=== PATIENT | female | born 1945 | race Caucasian/White ===

== ENCOUNTER 2024-11-16 12:21 | Inpatient (IN) | payer OTHER, BC ==
[2024-11-16 12:58] LABS: Absolute Basophils 0.1 K/uL (0-0.5); Absolute Eosinophils 0.2 K/uL (0-0.5); Absolute Lymphocytes (CBC) 2.1 K/uL (0.7-4.9); Absolute Monocytes 0.9 K/uL (0.1-1.3); Absolute Neutrophil 9.6 K/uL (1.8-8.0); Basophils % 0.6 % (0-1.3); Eosinophils % 1.8 % (0-4.4); Hematocrit 39.8 % (36.0-45.0); Hemoglobin 12.6 g/dL (12.0-15.0); Lymphocytes % 16.4 % (15.3-44.8); MCH 29.6 pg (27.0-35.0); MCHC 31.8 g/dL (32.0-36.0); MCV 93.1 fL (80-100); MPV 7.4 fL (7.6-11.3); Monocytes % 6.8 % (3.3-12.3); Neutrophils % 74.4 % (41.7-73.7); Platelets 276 thou/uL (152-406); RBC Red Blood Cell Count 4.27 M/uL (3.86-4.86); Red Cell Distribution Width 15.7 % (12.1-15.2)
[2024-11-16 13:06] LABS: PT Prothrombin Time 11.1 SECONDS (9.4-12.5); PTT, Activated Partial Thromb 28.9 SECONDS (24.3-36.9); Protime INR 0.99
[2024-11-16 13:18] LABS: Albumin 2.9 g/dL (3.4-5.0); Albumin/Globulin Ratio 0.7 (1.1-1.8); Alkaline Phosphatase 113 U/L (45-117); Anion Gap 8.2 mEq/L (5.0-15.0); BUN Blood Urea Nitrogen 35 mg/dL (7-18); Bicarbonate 31 mEq/L (21-32); Bilirubin Total 0.6 mg/dL (0.2-1.0); Globulin 4.3 g/dL (2.3-3.5); Glomerular Filtration Rate 30 ml/min (=/>90); Glucose Level 238 mg/dL (74-106); Magnesium 1.8 mg/dL (1.6-2.4); Potassium 4.2 mEq/L (3.5-5.1); Protein, Total 7.2 g/dL (6.4-8.2); Sodium Level 137 mEq/L (136-145)
[2024-11-16 13:31] LABS: ALT/SGPT < 14 U/L (13-56); AST/SGOT < 10 U/L (15-37)
--- NOTE | 2024-11-16 14:21 | RAD REPORT ---
EXAM: CT Head Brain Wo Cont HISTORY: syncope vs seizure COMPARISON: 09/06/2023 TECHNIQUE: Multiple contiguous axial images were obtained for a CT of the brain without contrast. Sag ittal and coronal reformats were performed. One or more of the following dose reduction techniques were used: Automated exposure control, adjus tment of the mA and kV according to patient size, and iterative reconstruction. Unless otherwise specified, incidental findings do not require dedicated imaging follow-up. FINDINGS: No evidence of hydrocephalus, intracranial hemorrhage, or extra-axial fluid collection. Moderate brain atrophy with moderate periventricular and deep white matter chronic microvascular isc hemic changes present. The calvarium is intact. The visualized paranasal sinuses and mastoid air cells are essentially clear . IMPRESSION: No evidence of acute intracranial abnormality. Chronic findings as above.
--- NOTE | 2024-11-16 15:18 | RAD REPORT ---
EXAMINATION: ONE VIEW CHEST XR CLINICAL INDICATION: Female, 79 years old.,DYSPNEA TECHNIQUE: Frontal chest projection is submitted. Examination is limited by patient positioning and t echnique. COMPARISON: 08/20/2023 FINDINGS: The lungs are well inflated. Streaky irregular opacity is mildly progressive since the prior exam. N o pneumothorax or sizable effusion. The heart is normal in size. Mediastinal contours are unremarkable. IMPRESSION: Progressive infrahilar opacities, may suggest reactive airway changes or viral infection. No focal co nsolidation.
--- NOTE | 2024-11-16 15:30 | EDPHYS ---
Physician Documentation [facility] Name: Renee Meraz Age: 79 yrs Sex: Female : 1945 Arrival Date: 11/16/2024 Time: 12:21 Bed 5 Private MD: ED Physician Julio Cesar Bond HPI: 11/16 12:49 This 79 yrs old Female presents to ER via EMS with complaints of Dizziness. rn 12:49 The patient presents with feeling faint, generalized weakness, lightheadedness. Onset: rn The symptoms/episode began/occurred this morning. Modifying factors: The symptoms are alleviated by lying down, the symptoms are aggravated by changing position. Severity of symptoms: At their worst the symptoms were moderate in the emergency department the symptoms have improved. The patient has not experienced similar symptoms in the past. Patient reports had to leave long term due to fire alarm, will walk outside with walker, spotted by kids who saw her sitting in her walker seat with tremors and possibly shaking her legs. Patient does not have history of seizures. Patient reports that she never lost consciousness and was aware of entire event. She reports she was feeling dizzy and lightheaded but denies syncope. Denies focal weakness or numbness. No vision problems. No chest pain. No speech problems. EMS does report hypoxemia and patient denies previous lung problems or need for oxygen. Does report previous smoking history. No chest pain.. Historical: - Allergies: 12:31 shrimp flavoring; aa5 - PMHx: 12:31 Hypertensive disorder; Myocardial infarction; Kidney Disease; Diabetes mellitus; aa5 - Family history:: not pertinent. - Hospitalizations: : No recent hospitalization is reported. ROS: 12:49 Constitutional: Negative for fever, chills, and weight loss, Eyes: Negative for injury, rn pain, redness, and discharge, Neck: Negative for injury, pain, and swelling, Cardiovascular: Negative for chest pain, palpitations, and edema, Respiratory: Mild shortness of breath Abdomen/GI: Negative for abdominal pain, nausea, vomiting, diarrhea, and constipation, Back: Negative for injury and pain, MS/Extremity: Negative for injury and deformity, Skin: Negative for injury, rash, and discoloration, Neuro: Positive for dizziness and generalized weakness. Negative for weakness that is focal Exam: 12:49 Constitutional: This is a well developed, well nourished patient who is awake, alert, rn and in no acute distress. On a nasal cannula. Head/Face: Normocephalic, atraumatic. ENT: Dry mucous membranes, no stridor Cardiovascular: Regular rate and rhythm. No pulse deficits. Respiratory: Mild tachypnea. No retractions Abdomen/GI: Soft, nontender MS/ Extremity: No edema. No cyanosis. Neuro: Awake and alert, GCS 15, oriented to person, place, and situation. Cranial nerves II-XII grossly intact. Motor strength 4/5 in all extremities. Sensory grossly intact. Cerebellar exam normal. 15:50 ECG was reviewed by the Attending Physician. rn Vital Signs: 12:25 BP 154 / 69; Pulse 67; Resp 22 S; Temp 98.4(O); Pulse Ox 94% on R/A; aa5 12:37 Pulse Ox 100% on 2 lpm NC; aa5 14:00 BP 132 / 81; Pulse 70; Resp 16 S; Pulse Ox 99% on 2 lpm NC; aa5 15:00 Resp 26 S; Pulse Ox 90% on R/A; aa5 15:01 BP 146 / 92; Pulse 72; Resp 16 S; Pulse Ox 97% on 2 lpm NC; aa5 16:00 BP 154 / 69; Pulse 67; Resp 20 S; Temp 98(TE); Pulse Ox 99% on 2 lpm NC; aa5 17:00 BP 128 / 65; Pulse 68; Resp 19 S; Pulse Ox 99% on 2 lpm NC; aa5 15:00 see nursing notes aa5 MDM: 12:25 Medical Screening Exam initiated rn 15:27 Differential diagnosis: idiopathic dizziness, near-syncope, Reactive airway disease, rn COPD, pneumonia, viral pneumonia, flu, COVID, UTI. Data reviewed: vital signs, nurses notes, lab test result(s), EKG, radiologic studies, plain films, and as a result, I will admit patient. Consideration of Admission/Observation Patient was admitted/placed on observation. Escalation of care including admission/observation considered. Care significantly affected by the following chronic conditions: Hypertension, Chronic Obstructive Pulmonary Disease. Counseling: I had a detailed discussion with the patient and/or guardian regarding the historical points, exam findings, and any diagnostic results supporting the discharge/admit diagnosis, lab results, radiology results, the need for further work-up and treatment in the hospital. ED course: X-ray shows bilateral pulmonary inflammation, possibly viral. Normal lactic acid. Elevated WBC. Will treat empirically with antibiotics and admit to hospitalist service for reactive airway disease with possible pneumonia. Viral studies sent to given bilateral pattern. Patient ambulated to bathroom with hypoxemia and dyspnea upon returning with tachypnea and oxygen saturation of 90%. Patient does not normally use oxygen. Does have smoking history in the past but no formal diagnosis of COPD or asthma.. 11/16 12:26 Order name: CBC with Diff; Complete Time: 14:43 rn 11/16 12:26 Order name: Magnesium; Complete Time: 14:43 rn 11/16 12:26 Order name: Protime (+inr); Complete Time: 14:43 rn 11/16 12:26 Order name: Ptt, Activated; Complete Time: 14:43 rn 11/16 12:26 Order name: Troponin High Sensitivity; Complete Time: 14:43 rn 11/16 12:26 Order name: Urinalysis w/ reflexes rn 11/16 12:26 Order name: Blood Culture Adult (2) 11/16 12:26 Order name: CMP; Complete Time: 14:43 rn 11/16 12:26 Order name: Lactate w/ 2H reflex if indic.; Complete Time: 14:43 rn 11/16 15:22 Order name: Flu 11/16 15:22 Order name: SARS-COV-2 Antigen Rapid 11/16 15:40 Order name: Urine Culture EDWV 11/16 16:39 Order name: T4 Free EDMS 11/16 16:39 Order name: Thyroid Stimulating Hormone EDMS 11/16 16:39 Order name: Basic Metabolic Panel EDMS 11/16 16:39 Order name: Basic Metabolic Panel EDMS 11/16 16:39 Order name: Basic Metabolic Panel EDMS 11/16 16:39 Order name: Basic Metabolic Panel EDMS 11/16 16:40 Order name: Basic Metabolic Panel EDMS 11/16 16:40 Order name: Basic Metabolic Panel EDMS 11/16 16:40 Order name: CBC with Automated Diff EDMS 11/16 16:40 Order name: CBC with Automated Diff EDMS 11/16 16:40 Order name: CBC with Automated Diff EDMS 11/16 16:40 Order name: CBC with Automated Diff EDMS 11/16 16:40 Order name: CBC with Automated Diff EDMS 11/16 16:40 Order name: CBC with Automated Diff EDMS 11/16 16:40 Order name: Hemoglobin A1c EDMS 11/16 16:40 Order name: Hemoglobin A1c EDMS 11/16 16:40 Order name: Magnesium EDMS 11/16 16:40 Order name: Magnesium EDMS 11/16 16:40 Order name: Magnesium EDMS 11/16 16:40 Order name: Magnesium EDMS 11/16 16:40 Order name: Magnesium EDMS 11/16 16:40 Order name: Magnesium EDMS 11/16 16:40 Order name: Phosphorus EDMS 11/16 16:40 Order name: Phosphorus EDMS 11/16 16:40 Order name: Phosphorus EDMS 11/16 16:40 Order name: Phosphorus EDMS 11/16 16:40 Order name: Phosphorus EDMS 11/16 16:40 Order name: Phosphorus EDMS 11/16 16:40 Order name: Troponin High Sensitivity EDMS 11/16 16:40 Order name: Troponin High Sensitivity EDMS 11/16 16:40 Order name: Troponin High Sensitivity EDMS 11/16 12:26 Order name: CT Head Brain wo Cont; Complete Time: 14:43 rn /16 12:26 Order name: Chest Single View XRAY; Complete Time: 15:21 rn /16 12:26 Order name: EKG; Complete Time: 12:27 rn /16 12:26 Order name: Cardiac monitoring; Complete Time: 12:31 rn /16 12:26 Order name: EKG - Nurse/Tech; Complete Time: 12:59 rn /16 12:26 Order name: IV Saline Lock; Complete Time: 12:31 rn /16 12:26 Order name: Labs collected and sent; Complete Time: 13:02 rn /16 12:26 Order name: O2 Per Protocol; Complete Time: 12:31 rn /16 12:26 Order name: O2 Sat Monitoring; Complete Time: 12:31 rn /16 12:26 Order name: Accucheck; Complete Time: 12:38 rn 12/16 12:26 Order name: IV Saline Lock - Large Bore; Complete Time: 12:38 rn 12/16 12:26 Order name: Vital Signs; Complete Time: 12:38 rn EC:50 Rate is 71 beats/min. Rhythm is regular. QRS [place] is Normal. [place] interval is normal. QRS rn interval is normal. QT interval is normal. No Q waves. T waves are Normal. No ST changes noted. Clinical impression: NSR w/ Non-specific ST/T Changes. Interpreted by me. Reviewed by me. Administered Medications: 16:00 Drug: Rocephin IV 1 grams IV at calculated rate once; Given slow IV push per pharmacy aa5 instructions Route: IV; Rate: calculated rate; Site: right hand; 16:04 Follow up: IV Status: Completed infusion aa5 16:05 Drug: Zithromax IVPB 500 mg IVPB once over 1 hrs; mix in 250 mL NS Route: IVPB; Infused aa5 Over: 1 hrs; Site: right hand; 16:20 Follow up: Response: No adverse reaction aa5 17:05 Follow up: IV Status: Completed infusion; IV Intake: 250ml aa5 16:05 Drug: Levalbuterol Inhalation 1.25 mg Inhalation once Route: Inhalation; aa5 Disposition Summary: 11/16/24 15:30 Hospitalization Ordered Notes: Hospitalization Status: Inpatient Admission rn Provider: Piper Almendarez [facility] Condition: Stable rn Problem: new rn Symptoms: are unchanged rn Bed/Room Type: Standard rn Room Assignment: 213(11/16/24 16:46) bd Diagnosis - Pneumonia, unspecified organism rn - Hypoxemia rn - Dyspnea, unspecified rn Forms: - Medication Reconciliation Form rn - SBAR form rn - Leadership Thank You Letter rn Signatures: Dispatcher [employer] Manasa Workman Roman, MD MD rn Calderon, Audri, RN RN aa5 Corrections: (The following items were deleted from the chart) 16:46 15:30 rn bd
--- NOTE | 2024-11-16 15:30 | ER ---
Nurse's Notes [facility] Name: Renee Meraz Age: 79 yrs Sex: Female : 1945 Arrival Date: 11/16/2024 Time: 12:21 Bed 5 Private MD: Diagnosis: Pneumonia, unspecified organism;Hypoxemia;Dyspnea, unspecified Presentation: 11/16 12:25 Chief complaint: EMS states: Pt lives at [facility] and was outside because of a fire aa5 alarm and was sitting on walker chair when kid bystanders noticed pt was not responding and "legs were twitching", pt reports she remembers everything and reports she was feeling dizzy and not well at the time. Pt reports dizziness has improved and is A\\T\\O x 4. EMS reports O2 sat was 90% upon arrival. 12:25 Coronavirus screen: At this time, the client does not indicate any symptoms associated aa5 with coronavirus-19. Ebola Screen: Patient denies travel to an Ebola-affected area in the 21 days before illness onset. Initial Sepsis Screen: Does the patient meet any 2 criteria? No. Patient's initial sepsis screen is negative. Does the patient have a suspected source of infection? No. Patient's initial sepsis screen is negative. Risk Assessment: Do you want to hurt yourself or someone else? Patient reports no desire to harm self or others. Onset of symptoms was November 16, 2024. 12:25 Acuity: PAMELA 2 aa5 12:25 Method Of Arrival: EMS: [facility] aa5 12:25 Care prior to arrival: IV initiated. 20 GA, in the right antecubital area, Glucose aa5 check: 293 Oxygen administered. via nasal cannula. Historical: - Allergies: 12:31 shrimp flavoring; aa5 - PMHx: 12:31 Hypertensive disorder; Myocardial infarction; Kidney Disease; Diabetes mellitus; aa5 - Family history:: not pertinent. - Hospitalizations: : No recent hospitalization is reported. Screenin:30 [facility] ED Fall Risk Assessment (Adult) History of falling in the last 3 months, aa5 including since admission No falls in past 3 months (0 pts) Confusion or Disorientation No (0 pts) Intoxicated or Sedated No (0 pts) Impaired Gait Yes (1 pt) Mobility Assist Device Used Yes (1 pt) Altered Elimination Yes (1 pt) Score/Fall Risk Level 3 or more points = High Risk Oriented to surroundings, Maintained a safe environment, Educated pt \\T\\ family on fall prevention, incl call for assistance when getting out of bed. Abuse screen: Denies threats or abuse. Nutritional screening: No deficits noted. Tuberculosis screening: No symptoms or risk factors identified. Assessment: 12:25 General: Appears comfortable, Behavior is calm, cooperative. Pain: Denies pain. Neuro: aa5 Level of Consciousness is awake, alert, obeys commands, Oriented to person, place, time, situation, Terminal Block Assembler are equal bilaterally Moves all extremities. Speech is normal, Facial symmetry appears normal, currently denies dizziness . Cardiovascular: Heart tones S1 S2 present Rhythm is regular. Respiratory: Airway is patent Respiratory effort is even, unlabored, Respiratory pattern is regular, symmetrical, Breath sounds are clear bilaterally. GI: Abdomen is round non-distended, Bowel sounds present X 4 quads. Abd is soft and non tender X 4 quads. Patient currently denies diarrhea, nausea, vomiting. : No signs and/or symptoms were reported regarding the genitourinary system. EENT: No signs and/or symptoms were reported regarding the EENT system. Derm: Skin is pink, warm \\T\\ dry. Musculoskeletal: Range of motion: intact in all extremities. 12:50 Reassessment: Patient is alert, oriented x 3, equal unlabored respirations, skin aa5 warm/dry/pink. Pt's son at bedside . 15:00 Reassessment: Pt assisted to restroom via wheelchair, pt now back in bed, tachypnea aa5 noted, RR 26 and O2 sat RA is 90%, MD currently at bedside speaking to pt and family about need for admission. . 15:00 Reassessment: Urine was sent to lab . aa5 16:00 Reassessment: Patient is alert, oriented x 3, equal unlabored respirations, skin aa5 warm/dry/pink. Pt's family remains at bedside. . 16:25 Reassessment: Hospitalist at bedside . aa5 17:08 Reassessment: Pt sitting up in bed eating dinner, pt tolerating well. . aa5 17:47 Reassessment: Patient is alert, oriented x 3, equal unlabored respirations, skin aa5 warm/dry/pink. Vital Signs: 12:25 BP 154 / 69; Pulse 67; Resp 22 S; Temp 98.4(O); Pulse Ox 94% on R/A; aa5 12:37 Pulse Ox 100% on 2 lpm NC; aa5 14:00 BP 132 / 81; Pulse 70; Resp 16 S; Pulse Ox 99% on 2 lpm NC; aa5 15:00 Resp 26 S; Pulse Ox 90% on R/A; aa5 15:01 BP 146 / 92; Pulse 72; Resp 16 S; Pulse Ox 97% on 2 lpm NC; aa5 16:00 BP 154 / 69; Pulse 67; Resp 20 S; Temp 98(TE); Pulse Ox 99% on 2 lpm NC; aa5 17:00 BP 128 / 65; Pulse 68; Resp 19 S; Pulse Ox 99% on 2 lpm NC; aa5 15:00 see nursing notes aa5 ED Course: 12:25 Patient arrived in ED. rn 12:25 Julio Cesar Bond MD is Attending Physician. rn 12:25 Arm band placed on Patient placed in an exam room, on a stretcher. aa5 12:25 Patient has correct armband on for positive identification. Placed in gown. Bed in low aa5 position. Call light in reach. Side rails up X2. Client placed on continuous cardiac and pulse oximetry monitoring. NIBP monitoring applied. ekg monitor tech on. Pulse ox on. NIBP on. 12:30 Jazmin Delgado, RN is Primary Nurse. aa5 12:37 Triage completed. aa5 12:49 Initial lab(s) drawn, by me, sent to lab. aa5 12:49 First set of blood cultures drawn by me. aa5 12:59 EKG done, by ED staff, reviewed by Julio Cesar Bond MD. kb4 13:00 Second set of blood cultures drawn by me. aa5 13:02 Inserted saline lock: 20 gauge in right hand, using aseptic technique. Blood collected. aa5 Flushed with 10 mL NS. 13:11 CT Head Brain wo Cont In Process Unspecified. EDMS 13:40 Chest Single View XRAY In Process Unspecified. EDMS 15:29 Piper Almendarez is Hospitalizing Provider. rn 17:47 Patient admitted, IV remains in place. aa5 17:47 No provider procedures requiring assistance completed. aa5 Administered Medications: 16:00 Drug: Rocephin IV 1 grams IV at calculated rate once; Given slow IV push per pharmacy aa5 instructions Route: IV; Rate: calculated rate; Site: right hand; 16:04 Follow up: IV Status: Completed infusion aa5 16:05 Drug: Zithromax IVPB 500 mg IVPB once over 1 hrs; mix in 250 mL NS Route: IVPB; Infused aa5 Over: 1 hrs; Site: right hand; 16:20 Follow up: Response: No adverse reaction aa5 17:05 Follow up: IV Status: Completed infusion; IV Intake: 250ml aa5 16:05 Drug: Levalbuterol Inhalation 1.25 mg Inhalation once Route: Inhalation; aa5 Medication: 16:45 VIS not applicable for this client. aa5 Intake: 17:05 IV: 250ml; Total: 250ml. aa5 Outcome: 15:30 Decision to Hospitalize by Provider. rn 17:47 Admitted to Tele accompanied by tech, family with patient, via wheelchair, with oxygen, aa5 with chart, Other Report was faxed to admitting nurse at 1717. 17:47 Condition: stable 17:47 Instructed on the need for admit, Demonstrated understanding of instructions, 17:54 Patient left the ED. aa5 Signatures: Dispatcher [employer] EDMS Julio Cesar Bond MD MD rn Calderon, Audri, RN RN [email or web address] Luli Lowry kb4 Corrections: (The following items were deleted from the chart) 17:52 15:01 Pulse Ox 97% 2 lpm Nasal Cannula; aa5 aa5
[2024-11-16] MEDS ORDERED: CEFTRIAXONE 1000 MG/VIAL ONE (15:34)
[2024-11-16] MEDS ORDERED: AZITHROMYCIN 500 MG INJ IVPB ONE (15:34)
[2024-11-16] MEDS ORDERED: NA CHLORIDE 0.9% 250 ML ONE (15:34)
[2024-11-16] MEDS ORDERED: LEVALBUTEROL 1.25 MG/3 ML NEB ONE (15:34)
[2024-11-16 15:37] LABS: Specific Gravity 1.012 (1.005-1.030); Sqamous Epithelial <5 /HPF (None Seen); Urine Bacteria <20 /HPF (<20); Urine Bilirubin NEGATIVE (Negative); Urine Blood Negative (Negative); Urine Clarity Extremely Turbid (Clear); Urine Color Light-Yellow (Yellow); Urine Crystals Unidentified Few /HPF (None Seen); Urine Culture Reflex Order REFLEXED; Urine Glucose NEGATIVE (Negative); Urine Ketones NEGATIVE (Negative); Urine Microscopic Reflex YN ORDER UMIC; Urine Mucus Slight /HPF (None Seen); Urine Nitrite NEGATIVE (Negative); Urine Protein TRACE (Negative); Urine Urobilinogen Normal (Normal); Urine WBC >50 /HPF (<5); Urine WBC Clump Rare /HPF (None Seen); Urine Yeast (Budding) Occasional /HPF (None Seen)
--- NOTE | 2024-11-16 16:17 | P.HP ---
Certification for Inpatient Patient admitted to: Observation With expected LOS: <2 Midnights Patient will require the following post-hospital care: None Practitioner: I am a practitioner with admitting privileges, knowledge of patient current condition, hospital course, and medical plan of care. Services: Services provided to patient in accordance with Admission requirements found in Title 42 Section 412.3 of the Code of Federal Regulations Patient History Date of Service: 11/16/24 Reason for admission: Acute hypoxic respiratory distress 2/2 PNA History of Present Illness: Renee Meraz is a 79-year-old female with past medical history of hypertension, IA, kidney disease, diabetes mellitus who presents to the ED with chief complaint of dizziness and lethargy. She reports ambulating with her walker to the outside for the long term during a fire drill. She sat in her walker waiting for the "all clear" to go back into the building. While waiting she felt dizzy and lethargic, having a hard time waking up. She reports this is never happened to her before and has not been diagnosed with COPD or any underlying lung condition. She reports a slight cough and shortness of breath but denies chest pain, fever, chills, and PETERS. On examination, lungs sounds positive for expiratory wheezing and right sided rhonchi, on 2 LNC with 100% saturation, no acute distress, conversing, well oriented, vital signs stable. Laboratory evaluation significant for WBC 12.9, BUN/creatinine 35/1.73, GFR 30, serum glucose 238, UA positive for leukocyte esterase 500 with occasional yeast budding, negative for COVID and flu Chest x-ray reports "Progressive infrahilar opacities, may suggest reactive airway changes or viral infection. No focal consolidation." CT head report "No evidence of hydrocephalus, intracranial hemorrhage, or extra- axial fluid collection. Moderate brain atrophy with moderate periventricular and deep white matter chronic microvascular ischemic changes present. The calvarium is intact. The visualized paranasal sinuses and mastoid air cells are essentially clear." Renee will be admitted to hospitalist service for further evaluation and treatment of boarderline hypoxia 2/2 community acquired PNA. Allergies shellfish derived Adverse Reaction (Verified 08/09/14 13:43) Nausea/Vomiting - Past Medical/Surgical History -: Hypertension -: Diabetes mellitus -: CKD -: IA with stent -: Coronary artery stent placement - Social History Smoking Status: Former smoker Alcohol use: No CD- Drugs: No Review of Systems Respiratory: Cough Physical Examination - Physical Exam General: Alert, In no apparent distress, Oriented x3 HEENT: Atraumatic, Normocephalic Neck: Supple, 2+ carotid pulse no bruit, JVD not distended Respiratory: Expiratory wheezes, Rhonchi/gurgles Cardiovascular: Normal pulses, Regular rate/rhythm, Normal S1 S2 Capillary refill: <2 Seconds Gastrointestinal: Normal bowel sounds, Hypoactive Musculoskeletal: No clubbing Integumentary: No rashes Neurological: Normal speech, Normal tone - Studies Laboratory Data (last 24 hrs) 11/16/24 11/16/24 11/16/24 12:49 12:49 12:49 WBC 12.90 H Hgb 12.6 Hct 39.8 Plt Count 276 PT 11.1 INR 0.99 APTT 28.9 Sodium 137 Potassium 4.2 BUN 35 H Creatinine 1.73 H Glucose 238 H Magnesium 1.8 Total Bilirubin 0.6 AST < 10 L ALT < 14 Alkaline Phosphatase 113 Assessment and Plan - Plan Assessment and Plan Boarderline acute hypoxia 2/2 community acquired PNA -Chest xray reports 'Progressive infrahilar opacities, may suggest reactive airway changes or viral infection. No focal consolidation." -CT head reports "No evidence of hydrocephalus, intracranial hemorrhage, or extra-axial fluid collection. Moderate brain atrophy with moderate periventricular and deep white matter chronic microvascular ischemic changes present. The calvarium is intact. The visualized paranasal sinuses and mastoid air cells are essentially clear." -Flu/COVID-negative -Rocephin/azithromycin -Robitussin -Duonebs -Oxygen protocol, incentive spirometry Diabetes mellitus with CKD -Accucheck with SSI -Serum glucose > 238 Acute on chronic kidney disease -BUN/Creatinine 35/1.73, GFR 30 -Monitor in a.m. labs CAD with stent placed -continue home medications -continuous telemetry DVT ppx heparin Full code LOS 2 days Discharge Plan: Assisted Plan to discharge in: 48 Hours - Advance Directives Does patient have a Living Will: No Does patient have a Durable POA for Healthcare: No
[2024-11-16 16:25] LABS: SARS-CoV-2 Antigen CONTROL BLUE LINE VIS/BG OK; SARS-CoV-2 Antigen Rapid Res Negative (Negative)
[2024-11-16] MEDS ORDERED: ACETAMINOPHEN 325 MG TABLET PO PRN (16:32)
[2024-11-16] MEDS ORDERED: CEFTRIAXONE 1,000 MG in NA CHLORIDE 0.9% 50 ML IVPB SCH (17:11)
[2024-11-16] MEDS ORDERED: GLUCAGON 1 MG/VIAL IM PRN (17:15)
[2024-11-16] MEDS ORDERED: D10W 125 ML IV PRN (17:15)
[2024-11-16] MEDS: GUAIFENESIN/DM 5 ML UCUP PO SCH (18:50)
[2024-11-16] MEDS: HEPARIN 5000 UNIT/ML 1 ML VIAL SQ SCH (18:54)
[2024-11-16] MEDS: ALBUTEROL 2.5 MG/3 ML NEB SOL NEB SCH (20:23)
[2024-11-16] MEDS: IPRATROPIUM BROM 0.5MG/2.5ML NEB SCH (20:23)
[2024-11-16] MEDS: INSULIN REGULAR (HUMAN) 100 UNIT/ML SQ SCH (21:00)
[2024-11-16] MEDS: HYDRALAZINE HCL 20 MG/ML VIAL IV PRN (23:57)
[2024-11-17 04:24] VITALS: BMI 25.7
[2024-11-17 06:15] LABS: Absolute Basophils 0.1 K/uL (0-0.5); Absolute Eosinophils 0.2 K/uL (0-0.5); Absolute Lymphocytes (CBC) 2.5 K/uL (0.7-4.9); Absolute Monocytes 0.7 K/uL (0.1-1.3); Basophils % 0.8 % (0-1.3); Eosinophils % 1.9 % (0-4.4); Hematocrit 35.8 % (36.0-45.0); MCH 30.5 pg (27.0-35.0); MCHC 33.5 g/dL (32.0-36.0); MPV 7.5 fL (7.6-11.3); Monocytes % 7.6 % (3.3-12.3); Neutrophils % 63.7 % (41.7-73.7); Nucleated Red Blood Cells % 0.1 % (0-0); Platelets 270 thou/uL (152-406); RBC Red Blood Cell Count 3.94 M/uL (3.86-4.86); Red Cell Distribution Width 15.4 % (12.1-15.2)
[2024-11-17 06:24] LABS: Anion Gap 8.6 mEq/L (5.0-15.0); Magnesium 1.7 mg/dL (1.6-2.4); Phosphorus 3.8 mg/dL (2.5-4.9); Potassium 3.6 mEq/L (3.5-5.1)
[2024-11-17] MEDS ORDERED: HOME MED 1 EA UNK (Pravastatin [Pravachol*] 40 MG/TAB Tab) PO SCH (09:00)
[2024-11-17] MEDS: BUMETANIDE 1 MG TABLET PO SCH (09:23)
[2024-11-17] MEDS: POTASSIUM 25 MEQ EFFERV TAB PO ONE (09:23)
[2024-11-17] MEDS: FERROUS SULFATE 325 MG TAB PO SCH (09:23)
[2024-11-17 09:24] VITALS: O2SAT 95
[2024-11-17] MEDS: carvediloL 25 MG TAB PO SCH (09:24)
[2024-11-17] MEDS: CEFTRIAXONE 1,000 MG in NA CHLORIDE 0.9% 50 ML IVPB SCH (09:25)
[2024-11-17] MEDS: AZITHROMYCIN IV 500 MG in NA CHLORIDE 0.9% 250 ML IVPB SCH (09:26)
--- NOTE | 2024-11-17 13:18 | P.PN ---
Date of Service: 11/17/24 Subjective Awake, sitting on EOB eating breakfast on 2 LNC, will wean throughout the day no new complaints, improving ROS 10 point ROS as noted above, otherwise negative Physical Exam General: Alert and Oriented x3, NAD HEENT: Atraumatic, Normocephalic Neck: Supple, 2+ carotid pulse no bruit, JVD not distended Respiratory: Clear BBS, symmetrical chest wall movement. Cardiovascular: Normal pulses, RRR, Normal S1 S2 Capillary refill: <2 Seconds Gastrointestinal: Normal active bowel sounds, NT/ND, Soft on palpation Musculoskeletal: No clubbing Integumentary: No rashes Neurological: Normal speech, Normal tone Vitals Reviewed Problem list [place] acute hypoxia 2/2 community acquired PNA Diabetes mellitus with CKD Acute on chronic kidney disease CAD with stent placed Assessment and Plan [place] acute hypoxia 2/2 community acquired PNA -Chest xray reports 'Progressive infrahilar opacities, may suggest reactive airway changes or viral infection. No focal consolidation." -CT head reports "No evidence of hydrocephalus, intracranial hemorrhage, or extra-axial fluid collection. Moderate brain atrophy with moderate periventricular and deep white matter chronic microvascular ischemic changes present. The calvarium is intact. The visualized paranasal sinuses and mastoid air cells are essentially clear." -Flu/COVID-negative -continue Rocephin/azithromycin -Robitussin -Duonebs -Oxygen protocol, incentive spirometry -Procalcitonin 0.08 -TSH/Free T4 1.210/1.20 UTI -Rocephin -Culture with gram negative rods Diabetes mellitus with CKD -Accucheck with SSI -Serum glucose 185 Acute on chronic kidney disease -BUN/Creatinine 35/1.49, GFR 36 -Monitor in a.m. labs CAD with stent placed -continue home medications -continuous telemetry DVT ppx heparin Full code LOS 2 days Discharge Plan: [facility] Plan to discharge in: 48 Hours
[2024-11-17 16:16] LABS: Thyroid Stimulating Hormone 1.21 uIU/mL (0.358-3.740)
[2024-11-17] MEDS: ATORVASTATIN 10 MG TAB PO SCH (20:25)
[2024-11-17] MEDS: INSULIN GLARGINE 100 UNIT/ML SQ SCH (20:27)
[2024-11-18 04:42] LABS: Absolute Basophils 0.1 K/uL (0-0.5); Absolute Eosinophils 0.3 K/uL (0-0.5); Absolute Lymphocytes (CBC) 2.7 K/uL (0.7-4.9); Absolute Monocytes 0.9 K/uL (0.1-1.3); Absolute Neutrophil 6.1 K/uL (1.8-8.0); Basophils % 1.2 % (0-1.3); Eosinophils % 3.1 % (0-4.4); Hematocrit 35.1 % (36.0-45.0); Hemoglobin 11.3 g/dL (12.0-15.0); Lymphocytes % 26.7 % (15.3-44.8); MCH 29.9 pg (27.0-35.0); MCHC 32.3 g/dL (32.0-36.0); MCV 92.5 fL (80-100); MPV 8.2 fL (7.6-11.3); Monocytes % 8.6 % (3.3-12.3); Neutrophils % 60.4 % (41.7-73.7); Nucleated Red Blood Cells % 0.1 % (0-0); Platelets 244 thou/uL (152-406); RBC Red Blood Cell Count 3.79 M/uL (3.86-4.86); Red Cell Distribution Width 15.7 % (12.1-15.2)
[2024-11-18 04:49] LABS: Anion Gap 7.5 mEq/L (5.0-15.0); Magnesium 1.7 mg/dL (1.6-2.4); Phosphorus 3.4 mg/dL (2.5-4.9); Potassium 3.5 mEq/L (3.5-5.1)
[2024-11-18] MEDS: MAGNESIUM SULFATE 1 gm IVPB 1 GM/100 ML BAG IV ONE (06:31)
--- NOTE | 2024-11-18 08:15 | RAD REPORT ---
EXAMINATION: TWO VIEW CHEST XR CLINICAL INDICATION: Pneumonia TECHNIQUE: 2 views of the chest was performed. COMPARISON: 11/16/2024 FINDINGS: Bilateral pulmonary opacities are noted, without significant change since comparative study. These ap pear primarily to involve the pulmonary interstitium. The heart is upper limit of normal in size. No displaced fractures evident. IMPRESSION: No significant change in the bilateral interstitial lung prominence which is presumably related to vi ral infection or reactive airway disease, without focal consolidation typical of pneumonia.
[2024-11-18] MEDS: CEFUROXIME 250 MG TAB PO SCH (08:54)
[2024-11-18] MEDS: POTASSIUM CL SA 10 MEQ TAB PO ONE (08:55)
--- NOTE | 2024-11-18 12:15 | P.DS ---
Admission Date: 11/16/24 Discharge Date: 11/18/24 Disposition: ROUTINE DISCHARGE Discharge Condition: GOOD Reason for Admission: Acute hypoxic respiratory distress 2/2 PNA Brief History of Present Illness: Renee Meraz is a 79-year-old female with past medical history of hypertension, [place], kidney disease, diabetes mellitus who presents to the ED with chief complaint of dizziness and lethargy. 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 She sat in her walker waiting for the "all clear" to go back into the building. While waiting she felt dizzy and lethargic, having a hard time waking up. She reports this is never happened to her before and has not been diagnosed with COPD or any underlying lung condition. She reports a slight cough and shortness of breath but denies chest pain, fever, chills, and PETERS. On examination, lungs sounds positive for expiratory wheezing and right sided rhonchi, on 2 LNC with 100% saturation, no acute distress, conversing, well oriented, vital signs stable. Laboratory evaluation significant for WBC 12.9, BUN/creatinine 35/1.73, GFR 30, serum glucose 238, UA positive for leukocyte esterase 500 with occasional yeast budding, negative for COVID and flu Chest x-ray reports "Progressive infrahilar opacities, may suggest reactive airway changes or viral infection. No focal consolidation." CT head report "No evidence of hydrocephalus, intracranial hemorrhage, or extra- axial fluid collection. Moderate brain atrophy with moderate periventricular and deep white matter chronic microvascular ischemic changes present. The calvarium is intact. The visualized paranasal sinuses and mastoid air cells are essentially clear." Renee will be admitted to hospitalist service for further evaluation and treatment of [place]er[place] hypoxia 2/2 community acquired PNA. Vital Signs/Physical Exam: Temp Pulse Resp BP Pulse Ox 97.6 F 66 16 170/94 H 95 11/18/24 08:00 11/18/24 08:54 11/18/24 08:00 11/18/24 08:54 11/18/24 08:00 Laboratory Data at Discharge: WBC 10.10 thou/uL (4.3-10.9) 11/18/24 04:04 Hgb 11.3 g/dL (12.0-15.0) L 11/18/24 04:04 Hct 35.1 % (36.0-45.0) L 11/18/24 04:04 Plt Count 244 thou/uL (152-406) 11/18/24 04:04 PT 11.1 SECONDS (9.4-12.5) 11/16/24 12:49 INR 0.99 11/16/24 12:49 APTT 28.9 SECONDS (24.3-36.9) 11/16/24 12:49 Sodium 140 mEq/L (136-145) 11/18/24 04:04 Potassium 3.5 mEq/L (3.5-5.1) 11/18/24 04:04 BUN 38 mg/dL (7-18) H 11/18/24 04:04 Creatinine 1.65 mg/dL (0.55-1.02) H 11/18/24 04:04 Glucose 192 mg/dL (74-106) H 11/18/24 04:04 Phosphorus 3.4 mg/dL (2.5-4.9) 11/18/24 04:04 Magnesium 1.7 mg/dL (1.6-2.4) 11/18/24 04:04 Total Bilirubin 0.6 mg/dL (0.2-1.0) 11/16/24 12:49 AST < 10 U/L (15-37) L 11/16/24 12:49 ALT < 14 U/L (13-56) 11/16/24 12:49 Alkaline Phosphatase 113 U/L (45-117) 11/16/24 12:49 Home Medications: Aspirin [Aspirin EC 325 MG] 1 DAILY 11/17/24 Bumetanide [Bumex*] 0.5 mg PO DAILY 11/17/24 Cholecalciferol (Vitamin D3) [Vitamin D 5,000 IU Cap*] 5,000 unit PO DAILY 11/17/24 Ferrous Sulfate 325 mg PO DAILY 11/17/24 Insulin Degludec [Insulin Degludec Pen (U-100)] 28 unit SQ BEDTIME 11/17/24 Magnesium Oxide [Magnesium] 500 mg PO 11/17/24 Metformin ER [Glucophage ER*] 1 dose DAILY 11/17/24 Pravastatin [Pravachol*] 2 tab PO DAILY 11/17/24 Repaglinide [Prandin] 0.5 mg PO TID 11/17/24 Tumeric/Ging/[place]/Oreg/Capryl [Candicidal Capsule] 11/17/24 Ubidecarenone/Vit E Acet [Co Q-10 100 mg Softgel] 11/17/24 Vitamin K2 11/17/24 carvediloL [Carvedilol] 25 mg PO BID 11/17/24 Cefuroxime [Ceftin*] 500 mg PO DAILY 5 Days #5 tab 11/18/24 New Medications: Cefuroxime [Ceftin*] 500 mg PO DAILY 5 Days #5 tab Followup: Ze Fuller DO [Primary Care Provider] -
--- NOTE | 2024-11-18 17:19 | P.PN ---
Date of Service: 11/18/24 Subjective Awake, Family in the room reports she ate breakfast and lunch oxygen at rest and during ambulation satisfactory PT evaluation, recommend ambulating with support, she ambulated 250ft with the rolling walker. Family concerns addressed. ROS 10 point ROS as noted above, otherwise negative Physical Exam General: AAO x3, NAD HEENT: Atraumatic, Normocephalic Neck: Supple, 2+ carotid pulse no bruit, JVD not distended Respiratory: Clear BBS, symmetrical chest wall movement, on RA Cardiovascular: Normal pulses, RRR, Normal S1 S2 Capillary refill: <2 Seconds Gastrointestinal: active bowel sounds, NT/ND, Soft on palpation Musculoskeletal: No clubbing Integumentary: No rashes Neurological: Normal speech, Normal tone Vitals Reviewed Problem list [place] acute hypoxia 2/2 community acquired PNA Asymptomatic bacteriuria Diabetes mellitus with CKD Acute on chronic kidney disease CAD with stent placed Assessment and Plan [place] acute hypoxia 2/2 community acquired PNA -Chest xray reports 'Progressive infrahilar opacities, may suggest reactive airway changes or viral infection. No focal consolidation." -11/18 Chest xray reports "No significant change in the bilateral interstitial lung prominence which is presumably related to viral infection or reactive airway disease, without focal consolidation typical of pneumonia." -CT head reports "No evidence of hydrocephalus, intracranial hemorrhage, or extra-axial fluid collection. Moderate brain atrophy with moderate periventricular and deep white matter chronic microvascular ischemic changes present. The calvarium is intact. The visualized paranasal sinuses and mastoid air cells are essentially clear." -Flu/COVID-negative -continue Rocephin/azithromycin -Robitussin -Duonebs -Oxygen protocol, incentive spirometry -Procalcitonin 0.08 -TSH/Free T4 1.210/1.20 Asymptomatic bacteriuria -No treatment needed -Culture E coli Diabetes mellitus with CKD -Accucheck with SSI -Serum glucose 192 -restart metformin and semglee 28 units at bedtime Acute on chronic kidney disease -BUN/Creatinine 38/1.65, GFR 31 -Monitor in a.m. labs CAD with stent placed -continue home medications -continuous telemetry DVT ppx heparin Full code LOS 2 days Discharge Plan: [facility] Plan to discharge in: 48 Hours <Doris Montes De Oca - Last Filed: 11/18/24 17:09> Community-acquired pneumonia, stable Diabetic CKD stage III, stable Reasonably controlled type 2 diabetes She is ready for discharge from medical standpoint. Patient family refused to take the patient home. Patient is against SNF placement. Will order PT evaluation and continued current medical management. <TIFFANY Almendarez - Last Filed: 11/19/24 06:08>
[2024-11-18] MEDS: INSULIN GLARGINE 100 UNIT/ML SQ SCH (20:42)
[2024-11-19 04:34] LABS: Absolute Basophils 0.1 K/uL (0-0.5); Absolute Eosinophils 0.3 K/uL (0-0.5); Absolute Lymphocytes (CBC) 2.6 K/uL (0.7-4.9); Absolute Monocytes 0.8 K/uL (0.1-1.3); Absolute Neutrophil 4.8 K/uL (1.8-8.0); Eosinophils % 3.9 % (0-4.4); Hematocrit 35.1 % (36.0-45.0); Hemoglobin 11.1 g/dL (12.0-15.0); Lymphocytes % 29.8 % (15.3-44.8); MCH 29.7 pg (27.0-35.0); MCHC 31.8 g/dL (32.0-36.0); MCV 93.3 fL (80-100); MPV 7.6 fL (7.6-11.3); Monocytes % 9.7 % (3.3-12.3); Neutrophils % 55.6 % (41.7-73.7); Platelets 247 thou/uL (152-406); RBC Red Blood Cell Count 3.76 M/uL (3.86-4.86); Red Cell Distribution Width 15.6 % (12.1-15.2)
[2024-11-19 05:00] LABS: Anion Gap 7.6 mEq/L (5.0-15.0); Magnesium 1.8 mg/dL (1.6-2.4); Phosphorus 4.5 mg/dL (2.5-4.9); Potassium 3.6 mEq/L (3.5-5.1)
[2024-11-19] MEDS: MAGNESIUM SULFATE 1 gm IVPB 1 GM/100 ML BAG IV ONE (06:08)
[2024-11-19] MEDS: POTASSIUM CL SA 10 MEQ TAB PO ONE (06:09)
[2024-11-19 08:27] VITALS: BP 140/84; TEMP 98
[2024-11-19] MEDS: METFORMIN ER 500 MG TAB PO SCH (10:09)
--- NOTE | 2024-11-19 10:31 | P.DS ---
Admission Date: 11/16/24 Discharge Date: 11/19/24 Disposition: TRANSFER TO GROUP HOME Discharge Condition: GOOD Reason for Admission: Acute hypoxic respiratory distress 2/2 PNA Brief History of Present Illness: Diagnosis [place] acute hypoxia 2/2 community acquired PNA Asymptomatic bacteriuria Diabetes mellitus with CKD Acute on chronic kidney disease CAD with stent placed HPI 11/16/24 Renee Meraz is a 79-year-old female with past medical history of hypertension, [place], kidney disease, diabetes mellitus who presents to the ED with chief complaint of dizziness and lethargy. 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 She sat in her walker waiting for the "all clear" to go back into the building. While waiting she felt dizzy and lethargic, having a hard time waking up. She reports this is never happened to her before and has not been diagnosed with COPD or any underlying lung condition. She reports a slight cough and shortness of breath but denies chest pain, fever, chills, and PETERS. On examination, lungs sounds positive for expiratory wheezing and right sided rhonchi, on 2 LNC with 100% saturation, no acute distress, conversing, well oriented, vital signs stable. Laboratory evaluation significant for WBC 12.9, BUN/creatinine 35/1.73, GFR 30, serum glucose 238, UA positive for leukocyte esterase 500 with occasional yeast budding, negative for COVID and flu Chest x-ray reports "Progressive infrahilar opacities, may suggest reactive airway changes or viral infection. No focal consolidation." CT head report "No evidence of hydrocephalus, intracranial hemorrhage, or extra- axial fluid collection. Moderate brain atrophy with moderate periventricular and deep white matter chronic microvascular ischemic changes present. The calvarium is intact. The visualized paranasal sinuses and mastoid air cells are essentially clear." Renee will be admitted to hospitalist service for further evaluation and treatment of [place] hypoxia 2/2 community acquired PNA. Hospital Course: Renee Meraz is a pleasant 79 year old female with a past medical history significant for [text] who was admitted to the [facility] on 11/16/24 for [place] acute hypoxia 2/2 community acquired PNA. [text] On 11/19/24, Renee was seen on morning rounds and deemed medically stable for discharge. Renee was discharged with instructions to schedule follow-up appointments with Dr. Fuller. Renee was provided prescriptions for Ceftin and metformin with a dose change. Physical Exam General: AAO x3, NAD HEENT: Atraumatic, Normocephalic Neck: Supple, 2+ carotid pulse no bruit, JVD not distended Respiratory: Clear BBS, symmetrical chest wall movement, on RA Cardiovascular: Normal pulses, RRR, Normal S1 S2 Capillary refill: <2 Seconds Gastrointestinal: active bowel sounds, NT/ND, Soft on palpation Musculoskeletal: No clubbing Integumentary: No rashes Neurological: Normal speech, Normal tone Vital Signs/Physical Exam: Temp Pulse Resp BP Pulse Ox 98.0 F 70 18 140/84 95 11/19/24 08:00 11/19/24 08:00 11/19/24 08:00 11/19/24 08:00 11/19/24 08:00 Laboratory Data at Discharge: WBC 8.70 thou/uL (4.3-10.9) 11/19/24 04:15 Hgb 11.1 g/dL (12.0-15.0) L 11/19/24 04:15 Hct 35.1 % (36.0-45.0) L 11/19/24 04:15 Plt Count 247 thou/uL (152-406) 11/19/24 04:15 PT 11.1 SECONDS (9.4-12.5) 11/16/24 12:49 INR 0.99 11/16/24 12:49 APTT 28.9 SECONDS (24.3-36.9) 11/16/24 12:49 Sodium 139 mEq/L (136-145) 11/19/24 04:15 Potassium 3.6 mEq/L (3.5-5.1) 11/19/24 04:15 BUN 37 mg/dL (7-18) H 11/19/24 04:15 Creatinine 1.72 mg/dL (0.55-1.02) H 11/19/24 04:15 Glucose 192 mg/dL (74-106) H 11/19/24 04:15 Phosphorus 4.5 mg/dL (2.5-4.9) 11/19/24 04:15 Magnesium 1.8 mg/dL (1.6-2.4) 11/19/24 04:15 Total Bilirubin 0.6 mg/dL (0.2-1.0) 11/16/24 12:49 AST < 10 U/L (15-37) L 11/16/24 12:49 ALT < 14 U/L (13-56) 11/16/24 12:49 Alkaline Phosphatase 113 U/L (45-117) 11/16/24 12:49 Home Medications: Aspirin [Aspirin EC 325 MG] 1 DAILY 11/17/24 Bumetanide [Bumex*] 0.5 mg PO DAILY 11/17/24 Cholecalciferol (Vitamin D3) [Vitamin D 5,000 IU Cap*] 5,000 unit PO DAILY 11/17/24 Ferrous Sulfate 325 mg PO DAILY 11/17/24 Insulin Degludec [Insulin Degludec Pen (U-100)] 28 unit SQ BEDTIME 11/17/24 Magnesium Oxide [Magnesium] 500 mg PO 11/17/24 Metformin ER [Glucophage ER*] 1 dose DAILY 11/17/24 Pravastatin [Pravachol*] 2 tab PO DAILY 11/17/24 Repaglinide [Prandin] 0.5 mg PO TID 11/17/24 Tumeric/Ging/[place]/Oreg/Capryl [Candicidal Capsule] 11/17/24 Ubidecarenone/Vit E Acet [Co Q-10 100 mg Softgel] 11/17/24 Vitamin K2 11/17/24 carvediloL [Carvedilol] 25 mg PO BID 11/17/24 Cefuroxime [Ceftin] 250 mg PO DAILY 5 Days #5 tab 11/19/24 Metformin ER [Glucophage ER*] 1,000 mg PO DAILY WITH BREAKFAST 30 Days #30 tab.sa 11/19/24 New Medications: Cefuroxime [Ceftin] 250 mg PO DAILY 5 Days #5 tab Metformin ER [Glucophage ER*] 1,000 mg PO DAILY WITH BREAKFAST 30 Days #30 tab.sa Physician Discharge Instructions: Admitted with viral pneumonia and UTI, treated with IV antibiotics, tolerating Ceftin PO prior to discharge, Increased metformin to 1000mg daily with better glucose control, administered Semglee 28 units x one dose during this admission. 1. Please call and schedule a follow-up appointment with your PCP, Dr. Fuller in 3-5 days - Please follow-up with your PCP for medication refills/adjustments - increased metformin to 1000 mg daily 2. Continue diabetic diet 3. activity restrictions, fall precautions, walked 250 ft with physical therapy. 4. Return to the ED if symptoms worsen New medications Ceftin 250 mg twice daily x5 days Metformin 1000 mg daily- increased from 500 mg Diet: ADA Activity: Fall precautions Followup: Ze Fuller DO [Primary Care Provider] -
--- NOTE | 2024-11-19 11:37 | EKG ---
Test Date: 2024-11-16 Test Time: 12:45:15 Museum Assistant: JASE MEASUREMENT RESULTS: Intervals: Rate: 71 MS: 144 QRSD: 102 QT: 436 QTc: 473 [place]: P: 73 MS: 144 QRS: -70 T: 58 INTERPRETIVE STATEMENTS: Normal sinus rhythm Left anterior fascicular block Abnormal ECG Compared to ECG 05/02/2006 05:38:00 Left anterior fascicular block now present Electronically Signed On 11-19-24 11:36:21 [employer] by John Mariano
== END 2024-11-19 13:14 | disposition home or self-care (01) | DRG 194 ==
LOC: ER 12:21 → ERHOLD 16:32 → 2ND 17:46
PROVIDERS: ADMIT Internal Medicine; ATTEND Hospitalist
DX: J18.9 Pneumonia, unspecified organism (principal); N17.9 Acute kidney failure, unspecified; N39.0 Urinary tract infection, site not specified; B96.20 Unspecified Escherichia coli [E. coli] as the cause of diseases classified elsewhere; E11.22 Type 2 diabetes mellitus with diabetic chronic kidney disease; I12.9 Hypertensive chronic kidney disease with stage 1 through stage 4 chronic kidney disease, or unspecified chronic kidney disease; N18.9 Chronic kidney disease, unspecified; Z79.4 Long term (current) use of insulin; I25.10 Atherosclerotic heart disease of native coronary artery without angina pectoris; I25.2 Old myocardial infarction; Z98.61 Coronary angioplasty status; R09.02 Hypoxemia
CPT/HCPCS: 36415; 70450; 71045; 71046; 80048; 80053; 81001; 82947; 83036; 83605; 83735; 84100; 84145; 84439; 84443; 84484; 85025; 85610; 85730; 87040; 87077; 87086; 87088; 87186; 87804; 87811; 93005; 94010; 94640; 96365; 96375; 97116; 97161; 99285; J0360; J0696; J1644; J3475; J7050; J7613; J7614; J7644

== ENCOUNTER 2025-01-08 10:02 | Inpatient (IN) | payer OTHER, BC ==
[2025-01-08] MEDS ORDERED: NA CHLORIDE 0.9% 500 ML ONE (10:25)
[2025-01-08 10:33] LABS: Absolute Basophils 0.1 K/uL (0-0.5); Absolute Eosinophils 0.2 K/uL (0-0.5); Absolute Lymphocytes (CBC) 2.1 K/uL (0.7-4.9); Absolute Monocytes 0.7 K/uL (0.1-1.3); Absolute Neutrophil 8.3 K/uL (1.8-8.0); Basophils % 0.8 % (0-1.3); Eosinophils % 2.2 % (0-4.4); Hematocrit 35.7 % (36.0-45.0); Hemoglobin 11.6 g/dL (12.0-15.0); Lymphocytes % 18.7 % (15.3-44.8); MCH 29.9 pg (27.0-35.0); MCHC 32.4 g/dL (32.0-36.0); MCV 92.2 fL (80-100); MPV 7.3 fL (7.6-11.3); Monocytes % 5.7 % (3.3-12.3); Neutrophils % 72.6 % (41.7-73.7); Platelets 278 thou/uL (152-406); RBC Red Blood Cell Count 3.87 M/uL (3.86-4.86); Red Cell Distribution Width 15.2 % (12.1-15.2)
[2025-01-08 10:40] LABS: PT Prothrombin Time 10.8 SECONDS (9.4-12.5); Protime INR 1.03
--- NOTE | 2025-01-08 10:52 | RAD REPORT ---
EXAMINATION: CT HEAD WITHOUT CONTRAST CLINICAL INDICATION: Female, 79 years old.SYNCOPE TECHNIQUE: Axial CT images from the skull base to the vertex without intravenous contrast. Coronal an d sagittal reformatted images were created from the data set. One or more of the following dose reduction techniques were used: Automated exposure control, adjustment of the mA and/or kV according to patient size, and/or iterative reconstruction. Unless otherwise specified, incidental findings do not require dedicated imaging follow-up. [id number]. COMPARISON: 11/16/2024 FINDINGS: INTRACRANIAL: No acute intracranial hemorrhage. No hydrocephalus. No mass effect or midline shift. Mo derate chronic small vessel ischemic changes. VASCULATURE: No visualized abnormalities in the arteries or dural venous sinuses. SCALP/SKULL: No significant soft tissue or osseous abnormalities. SINUSES: The visualized paranasal sinuses and mastoid air cells are predominantly clear. IMPRESSION: No acute intracranial abnormality.
[2025-01-08 10:53] LABS: Albumin 2.5 g/dL (3.4-5.0); Albumin/Globulin Ratio 0.6 (1.1-1.8); Alkaline Phosphatase 121 U/L (45-117); BUN Blood Urea Nitrogen 31 mg/dL (7-18); Bicarbonate 29 mEq/L (21-32); Bilirubin Total 0.3 mg/dL (0.2-1.0); Globulin 4.2 g/dL (2.3-3.5); Glomerular Filtration Rate 31 ml/min (=/>90); Glucose Level 131 mg/dL (74-106); Lipase 52 U/L (13-75); Magnesium 2.2 mg/dL (1.6-2.4); NT PRO-BNP 406 pg/mL (<450); Protein, Total 6.7 g/dL (6.4-8.2); Sodium Level 138 mEq/L (136-145); Troponin High Sensitivity 8.3 pg/mL (<58.9)
[2025-01-08 10:55] LABS: ALT/SGPT < 14 U/L (13-56); AST/SGOT < 10 U/L (15-37); Bilirubin Direct < 0.2 mg/dL (0-0.2); Bilirubin Indirect, Calculated 0.1 mg/dL (0.2-0.8)
--- NOTE | 2025-01-08 10:55 | RAD REPORT ---
EXAM: Chest Single View HISTORY: COUGH COMPARISON: None. FINDINGS: LUNGS/PLEURA: Enlarging nodular foci in the right upper lobe. Probable emphysema. MEDIASTINUM: The mediastinal silhouette is within normal limits. CARDIAC: Mild cardiomegaly UPPER ABDOMEN: No significant abnormality. BONES: No acute abnormality. LINES/TUBES/OTHER: N/A IMPRESSION: Cluster of right upper lobe nodules which are indeterminate. Recommend chest CT for further evaluatio n.
[2025-01-08] MEDS ORDERED: IPRATROPIUM BROM 0.5MG/2.5ML ONE (11:01)
[2025-01-08] MEDS ORDERED: LEVALBUTEROL 1.25 MG/3 ML NEB ONE (11:02)
--- NOTE | 2025-01-08 12:05 | RAD REPORT ---
EXAMINATION: CT CHEST WITHOUT CONTRAST CLINICAL INDICATION: Female, 79 years old. nodules TECHNIQUE: Routine CT scan of the chest without intravenous contrast. One or more of the following do se reduction techniques were used: Automated exposure control, adjustment of the mA and/or kV according to patient size, and/or iterative reconstruction. Unless otherwise specified, incidental fi ndings do not require dedicated imaging follow-up. [id number]. COMPARISON: Same-day chest x-ray, multiple prior chest x-rays, CT abdomen 03/26/2014 FINDINGS: LOWER NECK: 2.1 cm low-density left thyroid nodule with small calcifications. LUNGS AND AIRWAYS: Bilateral bronchiectasis with bronchial wall thickening and both nodular and micro nodular foci bilaterally.The largest nodule is present in the left lower lobe and measures 1.9 cm. PLEURA: No pleural effusion. No pneumothorax. Hemidiaphragms are normally positioned. MEDIASTINUM AND LYMPH NODES: No mediastinal mass or fluid collection. Normal size mediastinal, hilar, and axillary lymph nodes. Small hiatal hernia. THORACIC AORTA: No thoracic aortic aneurysm. PULMONARY ARTERIES: Caliber is within normal limits. HEART: Normal heart size. Multivessel coronary artery diseaseNo significant pericardial effusion. OSSEOUS STRUCTURES AND CHEST WALL: Remote-appearing T11 compression fracture. UPPER ABDOMEN: No acute abnormalities.Cholecystectomy. Right adrenal nodule which has increased in si ze since 2013 now measuring 3.3 cm, previously 3 cm. This is not atypical even for a benign process to increase in size and the changes and significant compared with the 10 year interval. No follow-up required. IMPRESSION: Bilateral cylindrical bronchiectasis with bronchial wall thickening and both bilateral nodularity and micronodularity. This is consistent with infection or inflammation and possibly related to a chronic or indolent infectious process such as mycobacterial avium complex (MAC). Short-term follow-u p chest CT in 3 months is recommended to ensure stability or improvement of the 19 mm left lower lobe nodule. Consider pulmonology referral regarding the other findings in the lungs. 2.1 cm left thyroid nodule. Nonemergent thyroid ultrasound is recommended.
[2025-01-08 12:35] LABS: Sqamous Epithelial <5 /HPF (None Seen); Urine Bacteria <20 /HPF (<20); Urine Bilirubin NEGATIVE (Negative); Urine Blood Negative (Negative); Urine Clarity Clear (Clear); Urine Color Colorless (Yellow); Urine Culture Reflex Order NOT NEEDED; Urine Glucose NEGATIVE (Negative); Urine Ketones NEGATIVE (Negative); Urine Microscopic Reflex YN ORDER UMIC; Urine Mucus Slight /HPF (None Seen); Urine Nitrite NEGATIVE (Negative); Urine Protein NEGATIVE (Negative); Urine RBC <5 /HPF (None Seen); Urine Urobilinogen Normal (Normal); Urine WBC <5 /HPF (<5); Urine pH 6.5 (5.0-7.0)
--- NOTE | 2025-01-08 12:39 | ER ---
Nurse's Notes [facility] Name: Renee Meraz Age: 79 yrs Sex: Female : 1945 Arrival Date: 01/08/2025 Time: 10:02 Bed 18 Private MD: Diagnosis: Syncope Near;Orthostatic hypotension;Bronchiectasis, uncomplicated;Unspecified kidney failure-chronic Presentation: 01/08 10:10 Chief complaint: Pt was at doctors office having a regular check-up and started having cm10 dizziness with a near syncopal episode. EMS reports that pt was hypotensive upon arrival. Pt received 400mL of NS en route. Pt states that she is no longer dizzy. Coronavirus screen: Client denies travel out of the [place] in the last 14 days. Ebola Screen: Patient denies travel to an Ebola-affected area in the 21 days before illness onset. Initial Sepsis Screen: Does the patient meet any 2 criteria? No. Patient's initial sepsis screen is negative. Does the patient have a suspected source of infection? No. Patient's initial sepsis screen is negative. Risk Assessment: Do you want to hurt yourself or someone else? Patient reports no desire to harm self or others. Onset of symptoms was January 08, 2025. 10:10 Method Of Arrival: EMS: [facility] cm10 10:10 Acuity: PAMELA 3 cm10 10:16 Care prior to arrival: Medication(s) given: Normal saline infusion, 500 mL, IV cm10 initiated. 22 GA, in the right antecubital area. Triage Assessment: 10:14 General: Appears in no apparent distress. comfortable, Behavior is calm, cooperative. cm10 Pain: Denies pain. Neuro: No deficits noted. Level of Consciousness is awake, alert, obeys commands, Oriented to person, place, time, situation, Appropriate for age Reports dizziness, Resolved. Cardiovascular: No deficits noted. Patient's skin is warm and dry. Respiratory: No deficits noted. Airway is patent Respiratory effort is even, unlabored, Respiratory pattern is regular, symmetrical. Historical: - Allergies: 10:14 shrimp flavoring; cm10 - PMHx: 10:14 diabetes mellitus; Hypertensive disorder; kidney disease; Myocardial infarction; cm10 - Immunization history:: Adult Immunizations up to date. - Infectious Disease History:: Denies. - Social history:: Smoking status: Patient denies any tobacco usage or history of. Screenin:07 [facility] ED Fall Risk Assessment (Adult) History of falling in the last 3 months, cm10 including since admission No falls in past 3 months (0 pts) Confusion or Disorientation No (0 pts) Intoxicated or Sedated No (0 pts) Impaired Gait No (0 pts) Mobility Assist Device Used No (0 pt) Altered Elimination No (0 pt) Score/Fall Risk Level 0 - 2 = Low Risk Oriented to surroundings, Maintained a safe environment, Hourly rounding (assess needs \T\ fall precautionary measures) done. Abuse screen: Denies threats or abuse. Denies injuries from another. Nutritional screening: No deficits noted. Tuberculosis screening: No symptoms or risk factors identified. Assessment: 12:00 Reassessment: Patient appears in no apparent distress at this time. Patient and/or cm10 family updated on plan of care and expected duration. Pain level reassessed. Patient is alert, oriented x 3, equal unlabored respirations, skin warm/dry/pink. 12:41 Reassessment: Dr. Farris requesting sputum collection prior to discharge. shira Muir RN notified, pt provided with collection cup and instructions provided. 14:00 General: Discharge delayed for patient to give sputum culture. . me1 Vital Signs: 10:10 BP 161 / 51; Pulse 67; Resp 15; Temp 97.9(O); Pulse Ox 96% on R/A; Weight 68.04 kg; cm10 Height 5 ft. 5 in. ; Pain 0/10; 11:00 BP 173 / 49; Pulse 64; Resp 15; Pulse Ox 98% ; cm10 11:30 BP 149 / 50; Pulse 65; Resp 15; Pulse Ox 95% ; cm10 13:00 BP 158 / 52; Pulse 65; Resp 18; Temp 98.7; Pulse Ox 97% ; me1 13:59 BP 160 / 61 Supine; Pulse 67; me1 13:59 BP 160 / 68 Sitting; Pulse 73; me1 13:59 BP 135 / 60 Standing; Pulse 85; me1 14:30 BP 132 / 71; Pulse 77; Resp 16; Pulse Ox 97% ; me1 15:00 BP 129 / 57; Pulse 78; Resp 16; Pulse Ox 98% ; me1 16:00 BP 165 / 61; Pulse 73; Resp 17; Pulse Ox 95% ; me1 10:10 Body Mass Index 24.96 (68.04 kg, 165.1 cm) cm10 10:10 Pain Scale: Adult cm10 ED Course: 10:10 Patient arrived in ED. cm10 10:11 Chris Farris MD is Attending Physician. saeed 10:14 Triage completed. cm10 10:15 Patient has correct armband on for positive identification. Placed in gown. Bed in low cm10 position. Call light in reach. Side rails up X2. Provided Education on: ER process and procedures.. Client placed on continuous cardiac and pulse oximetry monitoring. NIBP monitoring applied. alarm security or surveillance monitor on. 10:16 Arm band placed on right wrist. Patient placed in an exam room, on a stretcher. cm10 10:16 Maintain EMS IV. Dressing intact. Good blood return noted. Site clean \T\ dry. Gauge \T\ cm 10 site: 22g right AC. Flushed with 10 mL NS. 10:26 EKG done, by ED staff, reviewed by Chris Farris MD. nh2 10:44 CT Head Brain wo Cont In Process Unspecified. EDMS 10:52 XRAY Chest (1 view) In Process Unspecified. EDMS 11:09 SARS RAPID Sent. cm10 11:09 Flu Sent. cm10 11:09 COVID swab sent to lab. Flu and/or RSV swab sent to lab. cm10 11:48 CT Chest Wo Con In Process Unspecified. EDMS 12:08 Report given to PARIS Muir. cm10 12:38 Sarwat Carlton MD is Referral Physician. saeed 12:47 Isadora Shannon RN is Primary Nurse. me1 13:20 Sputum Culture: GRAM STAIN, [employer] Sent. me1 14:00 No provider procedures requiring assistance completed. me1 14:14 Deborah Martinez MD is Hospitalizing Provider. saeed 15:42 Inserted saline lock: 22 gauge in right antecubital area, using aseptic technique. me1 15:55 Patient admitted, IV remains in place. me1 Administered Medications: 10:42 Drug: NS 0.9% IV 1000 ml IV at 1000 ml once; to be given as a bolus over 60 minutes cm10 Route: IV; Rate: 1000 ml; Site: right antecubital; 15:56 Follow up: Response: No adverse reaction; IV Status: Completed infusion; IV Intake: me1 1000ml 11:09 Drug: Levalbuterol Inhalation 1.25 mg Inhalation once Route: Inhalation; cm10 15:56 Follow up: Response: No adverse reaction me1 11:09 Drug: Ipratropium Inhalation Aerosol 0.5 mg Inhalation once Route: Inhalation; cm10 15:56 Follow up: Response: No adverse reaction me1 12:50 Drug: LevOfloxacin PO 500 mg PO once Route: PO; me1 13:20 Follow up: Response: No adverse reaction me1 Medication: 11:32 VIS not applicable for this client. cm10 Intake: 15:56 IV: 1000ml; Total: 1000ml. me1 Outcome: 12:38 Discharge ordered by . saeed 14:15 Decision to Hospitalize by Provider. [facility] 15:55 Admitted to Med/surg accompanied by tech, via wheelchair, room 209, with chart, Report me1 called to faxed, receipt confirmed with Summer. 15:55 Condition: stable 15:55 Instructed on the need for admit, 16:40 Patient left the ED. me1 Signatures: Dispatcher [employer] Chris Howell MD MD cha Leal, Jahala, RN RN jl7 Mercedes Abebe RN RN cm10 Isadora Shannon RN RN me1 Shad Locke Jr nh2
--- NOTE | 2025-01-08 12:39 | EDPHYS ---
Physician Documentation [facility] Name: Renee Meraz Age: 79 yrs Sex: Female : 1945 Arrival Date: 01/08/2025 Time: 10: Bed 18 Private MD: ED Physician Chris Farris HPI: 01/08 10:35 This 79 yrs old Female presents to ER via EMS with complaints of Near Syncope.saeed 10:35 The patient has experienced near-syncope. Onset: The symptoms/episode began/occurred saeed just prior to arrival. Duration: This was a single episode, that lasted 20 second(s). Context: the episode(s) was witnessed, [facility] , SON. Associated injury: The patient did not suffer any apparent associated injury. Associated signs and symptoms: The patient has no apparent associated signs or symptoms. Current symptoms: Currently, the patient is not experiencing any symptoms. The patient has not experienced similar symptoms in the past. NEVER EATS BREAKFAST. Historical: - Allergies: 10:14 shrimp flavoring; cm10 - PMHx: 10:14 diabetes mellitus; Hypertensive disorder; kidney disease; Myocardial infarction; cm10 - Immunization history:: Adult Immunizations up to date. - Infectious Disease History:: Denies. - Social history:: Smoking status: Patient denies any tobacco usage or history of. ROS: 10:37 Constitutional: Negative for fever, chills, and weight loss, Eyes: Negative for injury, saeed pain, redness, and discharge, ENT: Negative for injury, pain, and discharge, Neck: Negative for injury, pain, and swelling, Cardiovascular: Negative for chest pain, palpitations, and edema, Abdomen/GI: Negative for abdominal pain, nausea, vomiting, diarrhea, and constipation, Back: Negative for injury and pain, : Negative for injury, bleeding, discharge, and swelling, MS/Extremity: Negative for injury and deformity, Skin: Negative for injury, rash, and discoloration, Psych: Negative for depression, anxiety, suicide ideation, homicidal ideation, and hallucinations, Allergy/Immunology: Negative for hives, rash, and allergies, Endocrine: Negative for neck swelling, polydipsia, polyuria, polyphagia, and marked weight changes, 10:37 Respiratory: Positive for cough, "sounds productive", 10:37 Neuro: Positive for near syncope, weakness, Exam: 10:37 Constitutional: This is a well developed, well nourished patient who is awake, alert, saeed and in no acute distress. Head/Face: Normocephalic, atraumatic. Eyes: Pupils equal round and reactive to light, extra-ocular motions intact. Lids and lashes normal. Conjunctiva and sclera are non-icteric and not injected. Cornea within normal limits. Periorbital areas with no swelling, redness, or edema. ENT: Nares patent. No nasal discharge, no septal abnormalities noted. Tympanic membranes are normal and external auditory canals are clear. Oropharynx with no redness, swelling, or masses, exudates, or evidence of obstruction, uvula midline. Mucous membranes moist. Neck: Trachea midline, no thyromegaly or masses palpated, and no cervical lymphadenopathy. Supple, full range of motion without nuchal rigidity, or vertebral point tenderness. No Meningismus. Chest/axilla: Normal chest wall appearance and motion. Nontender with no deformity. No lesions are appreciated. Cardiovascular: Regular rate and rhythm with a normal S1 and S2. No gallops, murmurs, or rubs. Normal PMI, no JVD. No pulse deficits. Respiratory: Lungs have equal breath sounds bilaterally, clear to auscultation and percussion. No rales, rhonchi or wheezes noted. No increased work of breathing, no retractions or nasal flaring. Abdomen/GI: Soft, non-tender, with normal bowel sounds. No distension or tympany. No guarding or rebound. No evidence of tenderness throughout. Back: No spinal tenderness. No costovertebral tenderness. Full range of motion. Skin: Warm, dry with normal turgor. Normal color with no rashes, no lesions, and no evidence of cellulitis. MS/ Extremity: Pulses equal, no cyanosis. Neurovascular intact. Full, normal range of motion., bilateral aka Neuro: Awake and alert, GCS 15, oriented to person, place, time, and situation. Cranial nerves II-XII grossly intact. Motor strength 5/5 in all extremities. Sensory grossly intact. Cerebellar exam normal. Normal gait. Psych: Awake, alert, with orientation to person, place and time. Behavior, mood, and affect are within normal limits. 10:37 ECG was reviewed by the Attending Physician. Vital Signs: 10:10 BP 161 / 51; Pulse 67; Resp 15; Temp 97.9(O); Pulse Ox 96% on R/A; Weight 68.04 kg; cm10 Height 5 ft. 5 in. ; Pain 0/10; 11:00 BP 173 / 49; Pulse 64; Resp 15; Pulse Ox 98% ; cm10 11:30 BP 149 / 50; Pulse 65; Resp 15; Pulse Ox 95% ; cm10 13:00 BP 158 / 52; Pulse 65; Resp 18; Temp 98.7; Pulse Ox 97% ; me1 13:59 BP 160 / 61 Supine; Pulse 67; me1 13:59 BP 160 / 68 Sitting; Pulse 73; me1 13:59 BP 135 / 60 Standing; Pulse 85; me1 14:30 BP 132 / 71; Pulse 77; Resp 16; Pulse Ox 97% ; me1 15:00 BP 129 / 57; Pulse 78; Resp 16; Pulse Ox 98% ; me1 16:00 BP 165 / 61; Pulse 73; Resp 17; Pulse Ox 95% ; me1 10:10 Body Mass Index 24.96 (68.04 kg, 165.1 cm) cm10 10:10 Pain Scale: Adult cm10 MDM: 10:11 Medical Screening Exam initiated saeed 10:38 Differential Diagnosis: cardiac arrhythmia, cerebrovascular accident, emotional saeed response, GI bleed, idiopathic syncope, pseudo seizure, seizure, sepsis, transient ischemic attack, vasovagal episode. Differential Diagnosis: Obstructed Airway Bronchitis Influenza Upper Respiratory Infection Sinusitis Asthma Exacerbation Viral Syndrome Pneumonia Tracheal Injury. Data reviewed: vital signs, nurses notes, lab test result(s), EKG, radiologic studies, plain films. Consideration of Admission/Observation Escalation of care including admission/observation considered. I considered the following discharge prescriptions or medication management in the emergency department Medications were administered in the Emergency Department. See MAR. Independent interpretation of the following test(s) in the Emergency Department EKG: See my EKG interpretation above. Test considered but Not performed: MRI: NO MRI BRAIN. Care significantly affected by the following chronic conditions: Diabetes, Hypertension, Obesity, Chronic Kidney Disease, [place]. 12:37 Historians other than the Patient: Daughter/Son: SON WELL INFORMED. [facility] 01/08 10:12 Order name: Basic Metabolic Panel; Complete Time: :14 [facility] 01/08 10:12 Order name: CBC with Diff; Complete Time: 11:14 [facility] 01/08 10:12 Order name: LFT's; Complete Time: 11:14 [facility] 01/08 10:12 Order name: Magnesium; Complete Time: 11:14 [facility] 01/08 10:12 Order name: NT PRO-BNP; Complete Time: 11:14 [facility] 01/08 10:12 Order name: PT-INR; Complete Time: 11:14 [facility] 01/08 10:12 Order name: Troponin HS; Complete Time: 11:14 [facility] 01/08 10:12 Order name: Lipase; Complete Time: 11:14 [facility] 01/08 10:12 Order name: Urinalysis w/ reflexes; Complete Time: 14:10 [facility] 01/08 10:35 Order name: Flu; Complete Time: 14:10 [facility] 01/08 10:35 Order name: SARS RAPID; Complete Time: 14:10 [facility] 01/08 12:26 Order name: Sputum Culture: GRAM STAIN, [employer]B [facility] 01/08 15:25 Order name: Urinalysis w/ reflexes EDMS 01/08 15:25 Order name: Basic Metabolic Panel EDMS 01/08 15:25 Order name: Basic Metabolic Panel EDMS 01/08 15:25 Order name: Basic Metabolic Panel EDMS 01/08 15:25 Order name: Basic Metabolic Panel EDMS 01/08 15:25 Order name: Basic Metabolic Panel EDMS 01/08 15:25 Order name: Basic Metabolic Panel EDMS 01/08 15:25 Order name: CBC with Automated Diff EDMS 01/08 15:25 Order name: CBC with Automated Diff EDMS 01/08 15:25 Order name: CBC with Automated Diff EDMS 01/08 15:25 Order name: CBC with Automated Diff EDMS / 15:25 Order name: CBC with Automated Diff EDMS / 15:25 Order name: CBC with Automated Diff EDMS / 15:25 Order name: Magnesium EDMS 01/08 15:25 Order name: Magnesium EDMS 01/08 15:25 Order name: Magnesium EDMS 01/08 15:25 Order name: Magnesium EDMS 01/08 15:25 Order name: Magnesium EDMS 01/08 15:25 Order name: Magnesium EDMS 01/08 15:25 Order name: Phosphorus EDMS 01/08 15:25 Order name: Phosphorus EDMS 01/08 15:25 Order name: Phosphorus EDMS 01/08 15:25 Order name: Phosphorus EDMS 01/08 15:25 Order name: Phosphorus EDMS 01/08 15:25 Order name: Phosphorus EDMS 01/08 15:25 Order name: Troponin High Sensitivity EDMS 01/08 15:25 Order name: Troponin High Sensitivity EDMS 01/08 15:25 Order name: Troponin High Sensitivity EDMS 01/08 10:12 Order name: XRAY Chest (1 view); Complete Time: 11:14 [facility] 01/08 10:12 Order name: CT Head Brain wo Cont; Complete Time: 11:14 [facility] 01/08 11:15 Order name: CT Chest Wo Con; Complete Time: 12:18 [facility] 01/08 15:25 Order name: CONS Physician Consult [facility] 01/08 15:25 Order name: CONS Physician Consult [facility] 01/08 15:25 Order name: Physical Therapy Consult [facility] 01/08 10:12 Order name: Cardiac monitoring; Complete Time: 10:25 [facility] 01/08 10:12 Order name: EKG - Nurse/Tech; Complete Time: 10: [facility] 01/08 10:12 Order name: IV Saline Lock; Complete Time: 10: [facility] 01/08 10:12 Order name: Labs collected and sent; Complete Time: 10: [facility] 01/08 10:12 Order name: O2 Per Protocol; Complete Time: 10: [facility] 01/08 10:12 Order name: O2 Sat Monitoring; Complete Time: 10: [facility] 01/08 10:41 Order name: Orthostatics; Complete Time: 13:20 [facility] EC:37 Rate is 64 beats/min. Rhythm is regular. QRS Mary D is Normal. [place] interval is normal. QRS saeed interval is normal. QT interval is normal. No Q waves. T waves are Normal. No ST changes noted. Clinical impression: NSR w/ Non-specific ST/T Changes and No evidence of ischemia. Interpreted by me. Reviewed by me. Administered Medications: 10:42 Drug: NS 0.9% IV 1000 ml IV at 1000 ml once; to be given as a bolus over 60 minutes cm10 Route: IV; Rate: 1000 ml; Site: right antecubital; 15:56 Follow up: Response: No adverse reaction; IV Status: Completed infusion; IV Intake: me1 1000ml 11:09 Drug: Levalbuterol Inhalation 1.25 mg Inhalation once Route: Inhalation; cm10 15:56 Follow up: Response: No adverse reaction me1 11:09 Drug: Ipratropium Inhalation Aerosol 0.5 mg Inhalation once Route: Inhalation; cm10 15:56 Follow up: Response: No adverse reaction me1 12:50 Drug: LevOfloxacin PO 500 mg PO once Route: PO; me1 13:20 Follow up: Response: No adverse reaction me1 Disposition Summary: 01/08/25 14:15 Hospitalization Ordered Notes: Hospitalization Status: Inpatient Admission saeed Provider: Deborah Martinez cha Location: Telemetry/MedSurg (Inpatient)(01/08/25 14:15) saeed Condition: Fair(01/08/25 14:15) saeed Problem: new(01/08/25 14:15) saeed Symptoms: have improved(01/08/25 14:15) saeed Bed/Room Type: Standard [facility] Room Assignment: 209(01/08/25 15:43) eb Diagnosis - Syncope Near(01/08/25 14:15) saeed - Orthostatic hypotension saeed - Bronchiectasis, uncomplicated saeed - Unspecified kidney failure - chronic(01/08/25 14:15) saeed Forms: - Medication Reconciliation Form saeed - SBAR form saeed - Leadership Thank You Letter saeed Signatures: Dispatcher [employer] EDMS Chris Farris MD MD cha Botello, Elizabeth eb Martinez, Clarissa, RN RN cm10 Isadora Shannon RN RN me1 Corrections: (The following items were deleted from the chart) 10:13 10:12 BASIC METABOLIC PANEL+C.LAB.BRZ ordered. EDMS EDMS 10:13 10:12 CBC+H.LAB.BRZ ordered. EDMS EDMS 10:13 10:12 HEPATIC FUNCTION+C.LAB.BRZ ordered. EDMS EDMS 10:13 10:12 MAGNESIUM+C.LAB.BRZ ordered. EDMS EDMS 10:13 10:12 PROBNP+C.LAB.BRZ ordered. EDMS EDMS 10:13 10:12 PROTIME (+INR)+COAG.LAB.BRZ ordered. EDMS EDMS 10:13 10:12 Troponin High Sensitivity+C.LAB.BRZ ordered. EDMS EDMS 10:13 10:12 LIPASE+C.LAB.BRZ ordered. EDMS EDMS 10:13 10:12 Urinalysis+U.LAB.BRZ ordered. EDMS EDMS 10:13 10:13 Chest Single View+RAD.RAD.BRZ ordered. EDMS EDMS 10:13 10:13 Head Brain Wo Cont+CT.RAD.BRZ ordered. EDMS EDMS 14:10 12:38 Home saeed saeed 14:10 12:38 new saeed saeed 14:10 12:38 have improved saeed saeed 14:10 12:38 Stable saeed saeed 14:10 12:38 Syncope Near saeed saeed 14:10 12:38 Cough saeed saeed 14:10 12:38 Unspecified kidney failure - CHRONIC saeed saeed 14:10 12:38 Abnormal findings on diagnostic imaging of other specified body structures - saeed right upper lobe nodules, LUNG INFECTION, MAC saeed 15:43 14:15 saeed eb
[2025-01-08] MEDS ORDERED: levoFLOXacin 250 MG TAB ONE (12:48)
--- NOTE | 2025-01-08 13:37 | EKG ---
Test Date: 2025-01-08 Test Time: 10:22:19 Soccer Coach: WHITNEY MEASUREMENT RESULTS: Intervals: Rate: 64 OH: 146 QRSD: 110 QT: 448 QTc: 462 [place]: P: 62 OH: 146 QRS: -28 T: 33 INTERPRETIVE STATEMENTS: Normal sinus rhythm Normal ECG Compared to ECG 11/16/2024 12:45:15 Left anterior fascicular block no longer present Electronically Signed On 01-08-25 13:37:09 [employer]IATION OPERATIONS SPECIALIST by Gaurav Elder
[2025-01-08 13:55] LABS: SARS-CoV-2 Antigen CONTROL BLUE LINE VIS/BG OK; SARS-CoV-2 Antigen Rapid Res Negative (Negative)
--- NOTE | 2025-01-08 14:44 | P.HP ---
Certification for Inpatient Patient admitted to: Observation With expected LOS: <2 Midnights Practitioner: I am a practitioner with admitting privileges, knowledge of patient current condition, hospital course, and medical plan of care. Services: Services provided to patient in accordance with Admission requirements found in Title 42 Section 412.3 of the Code of Federal Regulations Patient History Date of Service: 01/08/25 Reason for admission: Near syncope, bronchiectasis History of Present Illness: Renee Meraz is a 79-year-old female with past medical history of hypertension, NH, kidney disease, diabetes mellitus who presents with near syncope at Dr. Elder's office and witnessed by her son. Son reports this is similiar to the [facility] episode when she was admitted for PNA and UTI. Head CT scans from today and [place] and both negative for acute findings. Chest CT showing possible MAC, bronchiectasis with bilateral nodularity. Initial vitals WNL. Laboratory evaluation significant for WBC 11, H&H 11/35, BUN/creatinine 31/1.65, GFR 31, serum glucose 131, alk phos 121, UA negative for infectious process. On examination, lung sounds are clear, on RA, conversing well, AAO x 4. Chest CT reports "Bilateral cylindrical bronchiectasis with bronchial wall thickening and both bilateral nodularity and micronodularity. This is consistent with infection or inflammation and possibly related to a chronic or indolent infectious process such as mycobacterial avium complex (MAC). Short-term follow- up chest CT in 3 months is recommended to ensure stability or improvement of the 19 mm left lower lobe nodule. Consider pulmonology referral regarding the other findings in the lungs. 2.1 cm left thyroid nodule. Nonemergent thyroid ultrasound is recommended." Initial vitals BP 161 / 51; Pulse 67; Resp 15; Temp 97.9(O); Pulse Ox 96% on R/A Renee will be admitted to hospitalist service for further evaluation and treatment of near syncope. Allergies shellfish derived Adverse Reaction (Verified 08/09/14 13:43) Nausea/Vomiting Home Medications: Aspirin [Aspirin EC 325 MG] 1 mg PO DAILY 11/17/24 Bumetanide [Bumex*] 0.5 mg PO DAILY 11/17/24 Cholecalciferol (Vitamin D3) [Vitamin D 5,000 IU Cap*] 5,000 unit PO DAILY 11/17/24 Ferrous Sulfate 325 mg PO DAILY 11/17/24 Magnesium Oxide [Magnesium] 500 mg PO BID 11/17/24 Pravastatin [Pravachol*] 2 tab PO DAILY 11/17/24 Repaglinide [Prandin] 0.5 mg PO TID 11/17/24 Tumeric/Ging/[place]/Oreg/Capryl [Candicidal Capsule] 500 mg PO DAILY 11/17/24 Ubidecarenone/Vit E Acet [Co Q-10 100 mg Softgel] 100 mg PO DAILY 11/17/24 Vitamin K2 100 mcg PO DAILY 11/17/24 carvediloL [Carvedilol] 25 mg PO BID 11/17/24 Metformin ER [Glucophage ER*] 1,000 mg PO DAILY WITH BREAKFAST 30 Days #30 tab.sa 11/19/24 - Past Medical/Surgical History Diabetic: Yes -: Hypertension -: Diabetes mellitus -: CKD -: [place] with stent -: Coronary artery stent placement - Social History Alcohol use: No CD- Drugs: No Caffeine use: Yes Review of Systems Other: Per HPI Physical Examination - Physical Exam General: Alert, In no apparent distress, Oriented x3 HEENT: Atraumatic, Normocephalic, PERRLA Neck: Supple, 2+ carotid pulse no bruit Respiratory: Clear to auscultation bilaterally, Normal air movement Cardiovascular: No edema, Normal pulses, Regular rate/rhythm, Normal S1 S2 Gastrointestinal: Normal bowel sounds, Soft and benign Musculoskeletal: No clubbing Integumentary: No rashes Neurological: Normal speech, Normal tone - Studies Laboratory Data (last 24 hrs) 01/08/25 01/08/25 01/08/25 10:23 10:23 10:23 WBC 11.50 H Hgb 11.6 L Hct 35.7 L Plt Count 278 PT 10.8 INR 1.03 Sodium 138 Potassium 4.0 BUN 31 H Creatinine 1.65 H Glucose 131 H Magnesium 2.2 Total Bilirubin 0.3 AST < 10 L ALT < 14 Alkaline Phosphatase 121 H Lipase 52 Microbiology Data (last 24 hrs): 01/08/25 11:07 Nasopharnyx Influenza Type A Antigen Screen - Final 01/08/25 11:07 Nasopharnyx Influenza Type B Antigen Screen - Final Assessment and Plan - Plan Assessment and plan Near syncope likely secondary to orthostasis Weakness -Orthostatic vital -Continuous telemetry -Gentle IV fluids -Physical therapy Bronchiectasis History of MAC -Dr. Carlton consulted -DuoNebs -Levaquin 750 mg PO daily -oxygen PRN -COVID and flu negative -Sputum culture results pending Diabetes mellitus with CKD -Accucheck with SSI -Serum glucose 131 Acute on chronic kidney disease -BUN/Creatinine 31/1.65, GFR 31 -Monitor in a.m. labs -Nephrology consulted CAD with stent placed Hypertension -continue home medications -continuous telemetry DVT ppx heparin Full code LOS 2 days Discharge Plan: Care Home Plan to discharge in: 48 Hours Discharge Plan: Home Plan to discharge in: 24 Hours - Advance Directives Does patient have a Living Will: No Does patient have a Durable POA for Healthcare: No
[2025-01-08] MEDS ORDERED: ACETAMINOPHEN 325 MG TABLET PO PRN (15:16)
[2025-01-08] MEDS: HEPARIN 5000 UNIT/ML 1 ML VIAL SQ SCH (17:10)
[2025-01-08 17:29] VITALS: O2SAT 98
[2025-01-08 17:41] VITALS: BMI 25.0
[2025-01-08] MEDS: NA CHLORIDE 0.9% 1,000 ML IV SCH (20:12)
[2025-01-08] MEDS: MAGNESIUM OXIDE 400 MG TAB PO SCH (20:17)
[2025-01-08] MEDS: IPRATROPIUM BROM 0.5MG/2.5ML NEB SCH (21:00)
[2025-01-08] MEDS: LEVALBUTEROL 1.25 MG/3 ML NEB NEB SCH (21:00)
[2025-01-09 05:17] LABS: Absolute Basophils 0.1 K/uL (0-0.5); Absolute Eosinophils 0.3 K/uL (0-0.5); Absolute Lymphocytes (CBC) 2.2 K/uL (0.7-4.9); Absolute Monocytes 0.9 K/uL (0.1-1.3); Absolute Neutrophil 6.1 K/uL (1.8-8.0); Basophils % 0.8 % (0-1.3); Eosinophils % 2.6 % (0-4.4); Hematocrit 34.6 % (36.0-45.0); Hemoglobin 11.3 g/dL (12.0-15.0); Lymphocytes % 22.7 % (15.3-44.8); MCH 30.2 pg (27.0-35.0); MCHC 32.6 g/dL (32.0-36.0); MCV 92.7 fL (80-100); MPV 7.4 fL (7.6-11.3); Monocytes % 9.5 % (3.3-12.3); Neutrophils % 64.4 % (41.7-73.7); Nucleated Red Blood Cells % 0.1 % (0-0); Platelets 264 thou/uL (152-406); RBC Red Blood Cell Count 3.74 M/uL (3.86-4.86); Red Cell Distribution Width 15.1 % (12.1-15.2)
[2025-01-09 05:26] LABS: Anion Gap 9.6 mEq/L (5.0-15.0); Magnesium 1.8 mg/dL (1.6-2.4); Phosphorus 2.9 mg/dL (2.5-4.9); Potassium 3.6 mEq/L (3.5-5.1)
[2025-01-09] MEDS: levoFLOXacin 750 MG TAB PO SCH (08:35)
[2025-01-09] MEDS: ASPIRIN EC 325 MG TABLET PO SCH (08:35)
[2025-01-09] MEDS: FERROUS SULFATE 325 MG TAB PO SCH (08:36)
[2025-01-09] MEDS: BUMETANIDE 1 MG TABLET PO SCH (08:36)
[2025-01-09] MEDS: ATORVASTATIN 10 MG TAB PO SCH (08:36)
[2025-01-09] MEDS: carvediloL 25 MG TAB PO SCH (08:37)
[2025-01-09] MEDS: HOME MED 1 EA UNK (Ubidecarenone/Vit E Acet [Co Q-10 100 Mg Softgel] Capsule) PO SCH (09:00)
[2025-01-09] MEDS ORDERED: levoFLOXacin 750 MG TAB PO SCH (09:00)
--- NOTE | 2025-01-09 09:03 | P.CNS ---
Date of Consult: 01/09/25 Reason for Consult: LAM/ CKD Requesting Physician: juventino betancourt Chief Complaint: Near syncope, bronchiectasis History of Present Illness: Renee Meraz is a 79-year-old female with past medical history of hypertension, DC, kidney disease, diabetes mellitus who presents with near syncope at Dr. Elder's office and witnessed by her son. Son reports this is similiar to the [place]ce[place] episode when she was admitted for PNA and UTI. Head CT scans from today and Decemeber and both negative for acute findings. Chest CT showing possible MAC, bronchiectasis with bilateral nodularity. Initial vitals WNL. Laboratory evaluation significant for WBC 11, H&H 11/35, BUN/creatinine 31/1.65, GFR 31, serum glucose 131, alk phos 121, UA negative for infectious process. On examination, lung sounds are clear, on RA, conversing well, AAO x 4. Chest CT reports "Bilateral cylindrical bronchiectasis with bronchial wall thickening and both bilateral nodularity and micronodularity. This is consistent with infection or inflammation and possibly related to a chronic or indolent infectious process such as mycobacterial avium complex (MAC). Short-term follow- up chest CT in 3 months is recommended to ensure stability or improvement of the 19 mm left lower lobe nodule. Consider pulmonology referral regarding the other findings in the lungs. 2.1 cm left thyroid nodule. Nonemergent thyroid ultrasound is recommended." Initial vitals BP 161 / 51; Pulse 67; Resp 15; Temp 97.9(O); Pulse Ox 96% on R/A Renee will be admitted to hospitalist service for further evaluation and treatment of near syncope. [id number] 10:35 This 79 yrs old Female presents to ER via EMS with complaints of Near Syncope.saeed 10:35 The patient has experienced near-syncope. Onset: The symptoms/episode began/occurred saeed just prior to arrival. Duration: This was a single episode, that lasted 20 second(s). Context: the episode(s) was witnessed, [facility] , SON. Associated injury: The patient did not suffer any apparent associated injury. Associated signs and symptoms: The patient has no apparent associated signs or symptoms. Current symptoms: Currently, the patient is not experiencing any symptoms. The patient has not experienced similar symptoms in the past. NEVER EATS BREAKFAST. Allergies shellfish derived Adverse Reaction (Verified 08/09/14 13:43) Nausea/Vomiting Home medications list reviewed: Yes Home Medications: Aspirin [Aspirin EC 325 MG] 1 mg PO DAILY 11/17/24 Bumetanide [Bumex*] 0.5 mg PO DAILY 11/17/24 Cholecalciferol (Vitamin D3) [Vitamin D 5,000 IU Cap*] 5,000 unit PO DAILY 11/17/24 Ferrous Sulfate 325 mg PO DAILY 11/17/24 Magnesium Oxide [Magnesium] 500 mg PO BID 11/17/24 Pravastatin [Pravachol*] 2 tab PO DAILY 11/17/24 Repaglinide [Prandin] 0.5 mg PO TID 11/17/24 Tumeric/Ging/[place]/Oreg/Capryl [Candicidal Capsule] 500 mg PO DAILY 11/17/24 Ubidecarenone/Vit E Acet [Co Q-10 100 mg Softgel] 100 mg PO DAILY 11/17/24 Vitamin K2 100 mcg PO DAILY 11/17/24 carvediloL [Carvedilol] 25 mg PO BID 11/17/24 Metformin ER [Glucophage ER*] 1,000 mg PO DAILY WITH BREAKFAST 30 Days #30 tab.sa 11/19/24 - Past Medical/Surgical History Diabetic: Yes -: Hypertension -: Diabetes mellitus -: CKD III -: [place] with stent -: Coronary artery stent placement - Social History Alcohol use: No CD- Drugs: No Caffeine use: Yes Place of Residence: [place] Review of Systems 10-point ROS is otherwise unremarkable Physical Examination Temp Pulse Resp BP Pulse Ox 97.8 F 67 14 130/52 L 97 01/09/25 08:00 01/09/25 08:37 01/09/25 08:00 01/09/25 08:37 01/09/25 08:00 General: In no apparent distress, Oriented x3, Cooperative HEENT: Atraumatic Neck: Supple Respiratory: Clear to auscultation bilaterally, Normal air movement Cardiovascular: No edema, Regular rate/rhythm Gastrointestinal: Soft and benign, Non-distended Musculoskeletal: No clubbing, No contractures Integumentary: No rashes, No cyanosis Neurological: Normal speech Laboratory Data (last 24 hrs) 01/08/25 01/08/25 01/08/25 10:23 10:23 10:23 WBC 11.50 H Hgb 11.6 L Hct 35.7 L Plt Count 278 PT 10.8 INR 1.03 Sodium 138 Potassium 4.0 BUN 31 H Creatinine 1.65 H Glucose 131 H Magnesium 2.2 Total Bilirubin 0.3 AST < 10 L ALT < 14 Alkaline Phosphatase 121 H Lipase 52 Imagings Data: EXAMINATION: CT CHEST WITHOUT CONTRAST CLINICAL INDICATION: Female, 79 years old. nodules TECHNIQUE: Routine CT scan of the chest without intravenous contrast. One or more of the following dose reduction techniques were used: Automated exposure control, adjustment of the mA and/or kV according to patient size, and/or iterative reconstruction. Unless otherwise specified, incidental findings do not require dedicated imaging follow-up. [id number]. COMPARISON: Same-day chest x-ray, multiple prior chest x-rays, CT abdomen 03/26/2014 FINDINGS: LOWER NECK: 2.1 cm low-density left thyroid nodule with small calcifications. LUNGS AND AIRWAYS: Bilateral bronchiectasis with bronchial wall thickening and both nodular and micronodular foci bilaterally.The largest nodule is present in the left lower lobe and measures 1.9 cm. PLEURA: No pleural effusion. No pneumothorax. Hemidiaphragms are normally positioned. MEDIASTINUM AND LYMPH NODES: No mediastinal mass or fluid collection. Normal size mediastinal, hilar, and axillary lymph nodes. Small hiatal hernia. THORACIC AORTA: No thoracic aortic aneurysm. PULMONARY ARTERIES: Caliber is within normal limits. HEART: Normal heart size. Multivessel coronary artery disease. No significant pericardial effusion. OSSEOUS STRUCTURES AND CHEST WALL: Remote-appearing T11 compression fracture. UPPER ABDOMEN: No acute abnormalities.Cholecystectomy. Right adrenal nodule which has increased in size since 2014 now measuring 3.3 cm, previously 3 cm. This is not atypical even for a benign process to increase in size and the changes and significant compared with the 10 year interval. No follow-up required. IMPRESSION: Bilateral cylindrical bronchiectasis with bronchial wall thickening and both bilateral nodularity and micronodularity. This is consistent with infection or inflammation and possibly related to a chronic or indolent infectious process such as mycobacterial avium complex (MAC). Short-term follow-up chest CT in 3 months is recommended to ensure stability or improvement of the 19 mm left lower lobe nodule. Consider pulmonology referral regarding the other findings in the lungs. 2.1 cm left thyroid nodule. Nonemergent thyroid ultrasound is recommended. [id number] EXAMINATION: CT HEAD WITHOUT CONTRAST CLINICAL INDICATION: Female, 79 years old.SYNCOPE TECHNIQUE: Axial CT images from the skull base to the vertex without intravenous contrast. Coronal and sagittal reformatted images were created from the data set. One or more of the following dose reduction techniques were used: Automated exposure control, adjustment of the mA and/or kV according to patient size, and/or iterative reconstruction. Unless otherwise specified, incidental findings do not require dedicated imaging follow-up. [id number]. COMPARISON: 11/16/2024 FINDINGS: INTRACRANIAL: No acute intracranial hemorrhage. No hydrocephalus. No mass effect or midline shift. Moderate chronic small vessel ischemic changes. VASCULATURE: No visualized abnormalities in the arteries or dural venous sinuses. SCALP/SKULL: No significant soft tissue or osseous abnormalities. SINUSES: The visualized paranasal sinuses and mastoid air cells are predominantly clear. IMPRESSION: No acute intracranial abnormality. [id number] EXAM: Chest Single View HISTORY: COUGH COMPARISON: None. FINDINGS: LUNGS/PLEURA: Enlarging nodular foci in the right upper lobe. Probable emphysema. MEDIASTINUM: The mediastinal silhouette is within normal limits. CARDIAC: Mild cardiomegaly UPPER ABDOMEN: No significant abnormality. BONES: No acute abnormality. LINES/TUBES/OTHER: N/A IMPRESSION: Cluster of right upper lobe nodules which are indeterminate. Recommend chest CT for further evaluation. Conclusions/Impression: CKD IIIb -No NSAIDs HTN with CKD -Continue Coreg DM II with CKD -RISS prn Hypoalbuminemia -Protein supplementation prn Anemia in chronic illness -Monitor H&H Bronchiectasis -Pulmonary to evaluate Hospitalist and ER notes reviewed Case reviewed with Dr. Betancourt Thank you kindly for the consultation
--- NOTE | 2025-01-09 19:50 | P.PN ---
Date of Service: 01/09/25 Subjective Awake, working with physical therapy no new complaints ROS 10 point ROS as noted above, otherwise negative Physical Exam General: Alert and Oriented x3, NAD HEENT: Atraumatic, Normocephalic, PERRLA Neck: Supple, 2+ carotid pulse no bruit Respiratory: Clear BBS, Normal air movement, on RA Cardiovascular: Normal pulses, RRR, Normal S1 S2 present Gastrointestinal: Normal bowel sounds, Soft and benign on palpation Musculoskeletal: No clubbing Integumentary: No rashes Neurological: Normal speech, Normal tone Vitals Reviewed Problem list Near syncope likely secondary to orthostasis Weakness Bronchiectasis History of MAC Diabetes mellitus with CKD Diabetes mellitus with CKD Acute on chronic kidney disease CAD with stent placed Hypertension Assessment and Plan Near syncope likely secondary to orthostasis Weakness -Orthostatic vital -Continuous telemetry -Gentle IV fluids -Physical therapy Bronchiectasis History of MAC -Dr. Carlton consulted -DuoNebs -continue Levaquin 750 mg PO Q48 hr -oxygen PRN -COVID and flu negative -Sputum culture Gram negative Diabetes mellitus with CKD -Accucheck with SSI -Serum glucose 147 Acute on chronic kidney disease -BUN/Creatinine 35/1.50, GFR 30 -Monitor in a.m. labs -Nephrology consulted CAD with stent placed Hypertension -continue home medications -continuous telemetry DVT ppx heparin Full code LOS 2 days Discharge Plan: Home <Doris Montes De Oca - Last Filed: 01/09/25 19:35> Patient seen and examined. Plan of care discussed with Tavon. Family reports patient was hypotensive at cardiology Dr. Elder's office. Patient syncopal episode likely related to low BP. Orthostatic negative. Sputum culture: Gram-negative rods. Status post IV fluid Nephrology input appreciated Resume home dose Coreg Monitor BP and continue monitor technician. Pulmonary consulted for bronchiectasis. <juventino betancourt - Last Filed: 01/10/25 18:28>
[2025-01-09] MEDS: HYDRALAZINE HCL 20 MG/ML VIAL IV PRN (22:21)
[2025-01-10 05:20] LABS: Absolute Basophils 0.1 K/uL (0-0.5); Absolute Eosinophils 0.3 K/uL (0-0.5); Absolute Lymphocytes (CBC) 2.4 K/uL (0.7-4.9); Absolute Monocytes 0.9 K/uL (0.1-1.3); Absolute Neutrophil 5.8 K/uL (1.8-8.0); Basophils % 0.7 % (0-1.3); Eosinophils % 2.9 % (0-4.4); Hematocrit 35.1 % (36.0-45.0); Hemoglobin 11.7 g/dL (12.0-15.0); Lymphocytes % 25.1 % (15.3-44.8); MCH 30.3 pg (27.0-35.0); MCHC 33.3 g/dL (32.0-36.0); MPV 7.2 fL (7.6-11.3); Monocytes % 9.4 % (3.3-12.3); Neutrophils % 61.9 % (41.7-73.7); Platelets 255 thou/uL (152-406); RBC Red Blood Cell Count 3.85 M/uL (3.86-4.86)
[2025-01-10 05:36] LABS: Anion Gap 7.3 mEq/L (5.0-15.0); Magnesium 1.6 mg/dL (1.6-2.4); Phosphorus 3.1 mg/dL (2.5-4.9); Potassium 3.3 mEq/L (3.5-5.1)
[2025-01-10] MEDS: POTASSIUM 25 MEQ EFFERV TAB PO ONE (07:11)
[2025-01-10] MEDS: MAGNESIUM SULFATE 1 gm IVPB 1 GM/100 ML BAG IV ONE (07:41)
[2025-01-10] MEDS: POTASSIUM CL SA 10 MEQ TAB PO ONE (09:03)
--- NOTE | 2025-01-10 11:34 | P.CNS ---
Date of Consult: 01/10/25 Reason for Consult: Abnormal chest x-ray Chief Complaint: Near syncope, bronchiectasis History of Present Illness: Is 79 years of age admitted from the hospital with presyncopal attack she went to see a cardiology was feeling dizzy low blood pressure was recently changed from trach shield Tresiba so complaining of cough congestion patient is a former smoker 2 pack a day quit a while ago. Found to have abnormal chest x-ray with bilateral bronchiectasis possible left lower lobe lung mass feeling fine now Allergies shellfish derived Adverse Reaction (Verified 08/09/14 13:43) Nausea/Vomiting Home Medications: Aspirin [Aspirin EC 325 MG] 1 mg PO DAILY 11/17/24 Bumetanide [Bumex*] 0.5 mg PO DAILY 11/17/24 Cholecalciferol (Vitamin D3) [Vitamin D 5,000 IU Cap*] 5,000 unit PO DAILY 11/17/24 Ferrous Sulfate 325 mg PO DAILY 11/17/24 Magnesium Oxide [Magnesium] 500 mg PO BID 11/17/24 Pravastatin [Pravachol*] 2 tab PO DAILY 11/17/24 Repaglinide [Prandin] 0.5 mg PO TID 11/17/24 Tumeric/Ging/[place]/Oreg/Capryl [Candicidal Capsule] 500 mg PO DAILY 11/17/24 Ubidecarenone/Vit E Acet [Co Q-10 100 mg Softgel] 100 mg PO DAILY 11/17/24 Vitamin K2 100 mcg PO DAILY 11/17/24 carvediloL [Carvedilol] 25 mg PO BID 11/17/24 Metformin ER [Glucophage ER*] 1,000 mg PO DAILY WITH BREAKFAST 30 Days #30 tab.sa 11/19/24 - Past Medical/Surgical History Diabetic: Yes -: Hypertension -: Diabetes mellitus -: CKD III -: [place] with stent -: Coronary artery stent placement - Social History Alcohol use: No CD- Drugs: No Caffeine use: Yes Place of Residence: Shelter Review of Systems 10-point ROS is otherwise unremarkable Physical Examination Temp Pulse Resp BP Pulse Ox 98.3 F 69 24 H 146/67 H 94 01/10/25 08:00 01/10/25 08:00 01/10/25 08:00 01/10/25 08:00 01/10/25 08:00 General: In no apparent distress, Oriented x3 Neck: Supple Respiratory: Expiratory wheezes, Rhonchi/gurgles Cardiovascular: No edema, Regular rate/rhythm, Normal S1 S2 Gastrointestinal: Normal bowel sounds, Soft and benign Musculoskeletal: No clubbing, No swelling - Problems (1) Bronchiectasis with (acute) exacerbation Current Visit: Yes Status: Acute Plan: Is 79 years of age admitted with a presyncopal attack due to a change of her insulin recently Monus isolated which is sensitive to levofloxacin bilateral bronchiectasis patchy bilateral infiltrates treated with Levaquin for at least 14 days she will also need a flutter valve has quit smoking also needs bronchodilators COPD will need outpatient pulmonary function testing most likely has underlying chronic renal failure (2) Abnormal chest x-ray Current Visit: Yes Status: Acute Plan: Has a left lower lobe lung mass probably inflammatory will need a follow-up CT in a month
[2025-01-10] MEDS ORDERED: levoFLOXacin 750 MG TAB PO SCH ×2 (12:00)
[2025-01-10] MEDS: DULERA 200/5 (MOMETASONE/FORMOTEROL) INHALER IH SCH (12:08)
--- NOTE | 2025-01-10 12:15 | P.DS ---
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 Elder's office and witnessed by her son. Son reports this is similiar to the [facility] when she was admitted for PNA and UTI. Head CT scans from today and [facility] and both negative for acute findings. Chest CT showing poss ible MAC, bronchiectasis with bilateral nodularity. Initial vitals WNL. Laboratory evaluation significant for WBC 11, H&H 11/35, BUN/creatinine 31/1.65, GFR 31, serum glucose 131, alk phos 121, UA negative for infectious process. On examination, lung sounds are clear, on RA, conversing well, AAO x 4. Chest CT reports "Bilateral cylindrical bronchiectasis with bronchial wall thickening and both bilateral nodularity and micronodularity. This is consistent with infection or inflammation and possibly related to a chronic or indolent infectious process such as mycobacterial avium complex (MAC). Short-term follow- up chest CT in 3 months is recommended to ensure stability or improvement of the 19 mm left lower lobe nodule. Consider pulmonology referral regarding the other findings in the lungs. 2.1 cm left thyroid nodule. Nonemergent thyroid ultrasound is recommended." Initial vitals BP 161 / 51; Pulse 67; Resp 15; Temp 97.9(O); Pulse Ox 96% on R/A Renee will be admitted to hospitalist service for further evaluation and treatment of near syncope. Hospital Course: Patient was admitted and treated for the following: Near syncope likely secondary to orthostasis Weakness -Orthostatic vital WNL -Continuous telemetry with no acute events -Physical therapy, ambulated 250 ft. -Dr. Elder following, recommends outpatient workup Bronchiectasis History of MAC -Sputum culture growing pseudomonas aeruginosa sensitive to levaquin -Dr. Carlton will continue to follow up outpatient -prescribed Levaquin 750 mg PO Q48 hr x 6 doses and Dulera per pulmonology recommendation Diabetes mellitus with CKD -continue home medications at discharge Acute on chronic kidney disease -Nephrology will follow up outpatient -Improvement to creatinine during this admission CAD with stent placed Hypertension -continue home medications -continuous telemetry On 01/10/25, Renee was seen on morning rounds and deemed medically stable. Dr. Fuller, Dr. Carlton, and Dr. Elder evaluated and have cleared her for discharge. Renee was discharged home with family support. Renee was discharged with instructions to schedule follow-up appointments with Dr. Fuller, Dr. Wong, andvDr. Elder. Renee was provided prescriptions for Levaquin and Dulera. Physical Exam General: AAO x3, NAD Neck: Supple, 2+ carotid pulse no bruit Respiratory: non-labored breathing, symmetrical chest wall movement, on RA Cardiovascular: RRR, Normal S1 S2 present Gastrointestinal: active bowel sounds, Soft on palpation, nontender Musculoskeletal: No clubbing Integumentary: No rashes Neurological: Normal speech, Normal tone Vital Signs/Physical Exam: Temp Pulse Resp BP Pulse Ox 98.3 F 69 24 H 146/67 H 94 01/10/25 08:00 01/10/25 08:00 01/10/25 08:00 01/10/25 08:00 01/10/25 08:00 Laboratory Data at Discharge: WBC 9.40 thou/uL (4.3-10.9) 01/10/25 05:03 Hgb 11.7 g/dL (12.0-15.0) L 01/10/25 05:03 Hct 35.1 % (36.0-45.0) L 01/10/25 05:03 Plt Count 255 thou/uL (152-406) 01/10/25 05:03 PT 10.8 SECONDS (9.4-12.5) 01/08/25 10:23 INR 1.03 01/08/25 10:23 Sodium 140 mEq/L (136-145) 01/10/25 05:03 Potassium 3.3 mEq/L (3.5-5.1) L 01/10/25 05:03 BUN 24 mg/dL (7-18) H 01/10/25 05:03 Creatinine 1.44 mg/dL (0.55-1.02) H 01/10/25 05:03 Glucose 159 mg/dL (74-106) H 01/10/25 05:03 Phosphorus 3.1 mg/dL (2.5-4.9) 01/10/25 05:03 Magnesium 1.6 mg/dL (1.6-2.4) 01/10/25 05:03 Total Bilirubin 0.3 mg/dL (0.2-1.0) 01/08/25 10:23 AST < 10 U/L (15-37) L 01/08/25 10:23 ALT < 14 U/L (13-56) 01/08/25 10:23 Alkaline Phosphatase 121 U/L (45-117) H 01/08/25 10:23 Lipase 52 U/L (13-75) 01/08/25 10:23 Home Medications: Aspirin [Aspirin EC 325 MG] 1 mg PO DAILY 11/17/24 Bumetanide [Bumex*] 0.5 mg PO DAILY 11/17/24 Cholecalciferol (Vitamin D3) [Vitamin D 5,000 IU Cap*] 5,000 unit PO DAILY 11/17/24 Ferrous Sulfate 325 mg PO DAILY 11/17/24 Magnesium Oxide [Magnesium] 500 mg PO BID 11/17/24 Pravastatin [Pravachol*] 2 tab PO DAILY 11/17/24 Repaglinide [Prandin] 0.5 mg PO TID 11/17/24 Tumeric/Ging/Wilton/Oreg/Capryl [Candicidal Capsule] 500 mg PO DAILY 11/17/24 Ubidecarenone/Vit E Acet [Co Q-10 100 mg Softgel] 100 mg PO DAILY 11/17/24 Vitamin K2 100 mcg PO DAILY 11/17/24 carvediloL [Carvedilol] 25 mg PO BID 11/17/24 Metformin ER [Glucophage ER*] 1,000 mg PO DAILY WITH BREAKFAST 30 Days #30 tab.sa 11/19/24 Mometasone/Formoterol [Dulera 200 Mcg/5 Mcg Inhaler] 2 puff IH BID 30 Days #1 inhaler 01/10/25 levoFLOXacin [Levaquin*] 750 mg PO Q48H 14 Days #6 tab 01/10/25 New Medications: Mometasone/Formoterol [Dulera 200 Mcg/5 Mcg Inhaler] 2 puff IH BID 30 Days #1 inhaler levoFLOXacin [Levaquin*] 750 mg PO Q48H 14 Days #6 tab Physician Discharge Instructions: 1. Please call and schedule a follow-up appointment with your PCP Dr. Fuller in 3-5 days - Please follow-up with your PCP for medication refills/adjustments -Elevated blood pressure, please check your blood pressure and only take your blood pressure medications is the top number is 130 or greater. You will need to recheck your blood pressure throughout the day and record the reading for your doctor to make adjustment. 2. Please call and schedule a follow-up appointment with Dr. Carlton in one week -Order a flutter valve on [employer] -Remain smoke free for better healing 3. Please call and schedule a follow-up appointment with Dr. Elder this week 3. Continue diabetic diet 4. activity restrictions fall precautions 5. Return to the ED if symptoms worsen New medications Levaquin 750 mg every 48 hours x 6 doses Dulera 2 puffs twice daily Diet: AHA Activity: Fall precautions Followup: Ze Fuller DO [Primary Care Provider] - Gaurav Elder MD [ACTIVE - CAN ADMIT] - Sarwat Carlton MD [ACTIVE - CAN ADMIT] -
--- NOTE | 2025-01-10 14:53 | P.PN ---
Date of Service: 01/10/25 Vital Signs Temp Pulse Resp BP Pulse Ox 97.8 F 68 22 H 147/66 H 98 01/10/25 12:00 01/10/25 12:00 01/10/25 12:00 01/10/25 12:00 01/10/25 12:00 Medications Acetaminophen (Acetaminophen 325 Mg Tablet) 650 mg PO Q4HP PRN PRN Reason: Pain scale 2-4 (Mild)orT>101*F Aspirin (Aspirin Ec 325 Mg Tablet) 325 mg PO DAILY [facility] Last Admin: 01/10/25 09:03 Dose: 325 mg Atorvastatin Calcium (Atorvastatin 10 Mg Tab) 10 mg PO DAILY [facility] Last Admin: 01/10/25 09:03 Dose: 10 mg Bumetanide (Bumetanide 1 Mg Tablet) 0.5 mg PO DAILY [facility] Last Admin: 01/10/25 09:03 Dose: 0.5 mg Carvedilol (Carvedilol 25 Mg Tab) 25 mg PO BID [facility] Last Admin: 01/10/25 09:03 Dose: 25 mg Ferrous Sulfate (Ferrous Sulfate 325 Mg Tab) 325 mg PO DAILY [facility] Last Admin: 01/10/25 09:03 Dose: 325 mg Heparin Sodium (Porcine) (Heparin 5000 Unit/Ml 1 Ml Vial) 5,000 unit SQ Q8HR [facility] Last Admin: 01/10/25 09:03 Dose: 5,000 unit Home Med (Ubidecarenone/Vit E Acet [Co Q-10 100 Mg Softgel]) 100 mg PO DAILY [facility] Last Admin: 01/10/25 08:57 Dose: Not Given Hydralazine HCl (Hydralazine Hcl 20 Mg/Ml Vial) 10 mg IV Q6HP PRN PRN Reason: Goal to achieve SBP in comment Last Admin: 01/09/25 22:21 Dose: 10 mg Ipratropium [place] (Ipratropium Brom 0.5mg/2.5ml) 0.5 mg NEB [id number] [facility] Last Admin: 01/10/25 14:02 Dose: 0.5 mg Levalbuterol HCl (Levalbuterol 1.25 Mg/3 Ml Neb) 1.25 mg NEB [id number] [facility] Last Admin: 01/10/25 14:01 Dose: 1.25 mg Levofloxacin (Levofloxacin 750 Mg Tab) 750 mg PO Q48H [facility]; Protocol Last Admin: 01/09/25 08:35 Dose: 750 mg Magnesium Oxide (Magnesium Oxide 400 Mg Tab) 400 mg PO BID [facility] Last Admin: 01/10/25 09:00 Dose: 400 mg Lab Results (last 24 hrs) 01/10/25 11:44: POC Glucose 211 H 01/10/25 08:19: POC Glucose 155 H 01/10/25 05:03: Sodium 140, Potassium 3.3 L, Chloride 107, Carbon Dioxide 29, Anion Gap 7.3, BUN 24 H, Creatinine 1.44 H, Est GFR (CKD-EPI) 37 L, Glucose 159 H, Calcium 9.1 D, Phosphorus 3.1, Magnesium 1.6 01/10/25 05:03: WBC 9.40, RBC 3.85 L, Hgb 11.7 L, Hct 35.1 L, MCV 91.0, MCH 30.3, MCHC 33.3, RDW 15.0, Plt Count 255, MPV 7.2 L, Neutrophils % 61.9, Lymphocytes % 25.1, Monocytes % 9.4, Eosinophils % 2.9, Basophils % 0.7, Absolute Neutrophils 5.8, Absolute Lymphocytes 2.4, Absolute Monocytes 0.9, Absolute Eosinophils 0.3, Absolute Basophils 0.1 Microbiology Results 01/08/25 13:19 Sputum Sputum Gram Stain - Final 01/08/25 13:19 Sputum Culture & Sensitivity - Preliminary Pseudomonas Aeruginosa 01/08/25 11:07 Nasopharnyx Influenza Type A Antigen Screen - Final 01/08/25 11:07 Nasopharnyx Influenza Type B Antigen Screen - Final Assessment/ Plan: Nephrology No dyspnea No chest pain Feeling better No dizziness No acute events overnight Vitals, medications, blood work and imaging reviewed in the chart General: In no apparent distress, Oriented x3, Cooperative HEENT: Atraumatic Neck: Supple Respiratory: Clear to auscultation bilaterally, Normal air movement Cardiovascular: No edema, Regular rate/rhythm Gastrointestinal: Soft and benign, Non-distended Musculoskeletal: No clubbing, No contractures Integumentary: No rashes, No cyanosis Neurological: Normal speech Laboratory Data (last 24 hrs) 01/08/25 01/08/25 01/08/25 10:23 10:23 10:23 WBC 11.50 H Hgb 11.6 L Hct 35.7 L Plt Count 278 PT 10.8 INR 1.03 Sodium 138 Potassium 4.0 BUN 31 H Creatinine 1.65 H Glucose 131 H Magnesium 2.2 Total Bilirubin 0.3 AST < 10 L ALT < 14 Alkaline Phosphatase 121 H Lipase 52 Imagings Data: EXAMINATION: CT CHEST WITHOUT CONTRAST CLINICAL INDICATION: Female, 79 years old. nodules TECHNIQUE: Routine CT scan of the chest without intravenous contrast. One or more of the following dose reduction techniques were used: Automated exposure control, adjustment of the mA and/or kV according to patient size, and/or iterative reconstruction. Unless otherwise specified, incidental findings do not require dedicated imaging follow-up. [id number]. COMPARISON: Same-day chest x-ray, multiple prior chest x-rays, CT abdomen 03/26/2014 FINDINGS: LOWER NECK: 2.1 cm low-density left thyroid nodule with small calcifications. LUNGS AND AIRWAYS: Bilateral bronchiectasis with bronchial wall thickening and both nodular and micronodular foci bilaterally.The largest nodule is present in the left lower lobe and measures 1.9 cm. PLEURA: No pleural effusion. No pneumothorax. Hemidiaphragms are normally positioned. MEDIASTINUM AND LYMPH NODES: No mediastinal mass or fluid collection. Normal size mediastinal, hilar, and axillary lymph nodes. Small hiatal hernia. THORACIC AORTA: No thoracic aortic aneurysm. PULMONARY ARTERIES: Caliber is within normal limits. HEART: Normal heart size. Multivessel coronary artery disease. No significant pericardial effusion. OSSEOUS STRUCTURES AND CHEST WALL: Remote-appearing T11 compression fracture. UPPER ABDOMEN: No acute abnormalities.Cholecystectomy. Right adrenal nodule which has increased in size since 2014 now measuring 3.3 cm, previously 3 cm. This is not atypical even for a benign process to increase in size and the changes and significant compared with the 10 year interval. No follow-up required. IMPRESSION: Bilateral cylindrical bronchiectasis with bronchial wall thickening and both bilateral nodularity and micronodularity. This is consistent with infection or inflammation and possibly related to a chronic or indolent infectious process such as mycobacterial avium complex (MAC). Short-term follow-up chest CT in 3 months is recommended to ensure stability or improvement of the 19 mm left lower lobe nodule. Consider pulmonology referral regarding the other findings in the lungs. 2.1 cm left thyroid nodule. Nonemergent thyroid ultrasound is recommended. [id number] EXAMINATION: CT HEAD WITHOUT CONTRAST CLINICAL INDICATION: Female, 79 years old.SYNCOPE TECHNIQUE: Axial CT images from the skull base to the vertex without intravenous contrast. Coronal and sagittal reformatted images were created from the data set. One or more of the following dose reduction techniques were used: Automated exposure control, adjustment of the mA and/or kV according to patient size, and/or iterative reconstruction. Unless otherwise specified, incidental findings do not require dedicated imaging follow-up. [id number]. COMPARISON: 11/16/2024 FINDINGS: INTRACRANIAL: No acute intracranial hemorrhage. No hydrocephalus. No mass effect or midline shift. Moderate chronic small vessel ischemic changes. VASCULATURE: No visualized abnormalities in the arteries or dural venous sinuses. SCALP/SKULL: No significant soft tissue or osseous abnormalities. SINUSES: The visualized paranasal sinuses and mastoid air cells are predominantly clear. IMPRESSION: No acute intracranial abnormality. [id number] EXAM: Chest Single View HISTORY: COUGH COMPARISON: None. FINDINGS: LUNGS/PLEURA: Enlarging nodular foci in the right upper lobe. Probable emphysema. MEDIASTINUM: The mediastinal silhouette is within normal limits. CARDIAC: Mild cardiomegaly UPPER ABDOMEN: No significant abnormality. BONES: No acute abnormality. LINES/TUBES/OTHER: N/A IMPRESSION: Cluster of right upper lobe nodules which are indeterminate. Recommend chest CT for further evaluation. Conclusions/Impression: CKD IIIb -No NSAIDs Hypokalemia -Replete as ordered Hypomagnesemia -Replete as ordered HTN with CKD -Continue Coreg DM II with CKD -RISS prn Hypoalbuminemia -Protein supplementation prn Anemia in chronic illness -Monitor H&H Bronchiectasis -Follow up with pulmonary Case reviewed with the hospitalist team
[2025-01-10 16:19] VITALS: TEMP 98
[2025-01-10 17:54] VITALS: BP 140/66
== END 2025-01-10 18:50 | disposition home or self-care (01) | DRG 312 ==
LOC: ER 10:02 → ERHOLD 15:16 → 2ND 15:55 → OBSVTOIN 01-10 12:14
PROVIDERS: ADMIT Internal Medicine; ATTEND Internal Medicine
DX: I95.1 Orthostatic hypotension (principal); J47.1 Bronchiectasis with (acute) exacerbation; E87.6 Hypokalemia; E83.42 Hypomagnesemia; I12.9 Hypertensive chronic kidney disease with stage 1 through stage 4 chronic kidney disease, or unspecified chronic kidney disease; N18.32 Chronic kidney disease, stage 3b; E11.22 Type 2 diabetes mellitus with diabetic chronic kidney disease; D63.1 Anemia in chronic kidney disease; E66.9 Obesity, unspecified; E88.09 Other disorders of plasma-protein metabolism, not elsewhere classified; I25.10 Atherosclerotic heart disease of native coronary artery without angina pectoris; I25.2 Old myocardial infarction; B96.5 Pseudomonas (aeruginosa) (mallei) (pseudomallei) as the cause of diseases classified elsewhere; R91.8 Other nonspecific abnormal finding of lung field; Z95.5 Presence of coronary angioplasty implant and graft; Z68.25 Body mass index [BMI] 25.0-25.9, adult; Z91.013 Allergy to seafood; Z79.82 Long term (current) use of aspirin; Z79.02 Long term (current) use of antithrombotics/antiplatelets; Z79.899 Other long term (current) drug therapy; Z79.84 Long term (current) use of oral hypoglycemic drugs; Z11.52 Encounter for screening for COVID-19
CPT/HCPCS: 36415; 70450; 71045; 71250; 80048; 80076; 81001; 82947; 83690; 83735; 83880; 84100; 84484; 85025; 85610; 87015; 87070; 87077; 87116; 87186; 87205; 87206; 87804; 87811; 93005; 94640; 96360; 96361; 97116; 97161; 99285; G0378; J0360; J1644; J3535; J7030; J7040; J7614; J7644

== ENCOUNTER 2025-01-13 10:15 | Observation (INO) | payer OTHER, BC ==
--- OUTSIDE RECORDS SUMMARY | 2025-01-13 10:18 | XMS REPORT | Continuity of Care Document ---
Author Name Unknown Address [address] [place] [address] [employer] Address [address] [place] [address] [address] [place] [address] Care Team Providers Care Telephone Directory Deliverer Name Role Phone Unavailable Unavailable Unavailable Encounters Start Date/Time End Date/Time Encounter Type Admission Type Attending Clinicians Care Facility Care Department Encounter ID Source [id number] 10:52:54 2025 10:52:54 Outpatient [facility] [id number] Alfredo Li
[2025-01-13 10:45] LABS: Absolute Basophils 0.1 K/uL (0-0.5); Absolute Lymphocytes (CBC) 1.1 K/uL (0.7-4.9); Absolute Neutrophil 5.7 K/uL (1.8-8.0); Basophils % 0.8 % (0-1.3); Eosinophils % 0.2 % (0-4.4); Hematocrit 36.7 % (36.0-45.0); Hemoglobin 11.9 g/dL (12.0-15.0); Lymphocytes % 13.6 % (15.3-44.8); MCH 29.9 pg (27.0-35.0); MCHC 32.6 g/dL (32.0-36.0); MCV 91.8 fL (80-100); MPV 7.2 fL (7.6-11.3); Monocytes % 12.8 % (3.3-12.3); Neutrophils % 72.6 % (41.7-73.7); Nucleated Red Blood Cells % 0.2 % (0-0); Platelets 231 thou/uL (152-406); Red Cell Distribution Width 15.3 % (12.1-15.2)
[2025-01-13 11:00] LABS: Anion Gap 7.8 mEq/L (5.0-15.0); Potassium 3.8 mEq/L (3.5-5.1); Troponin High Sensitivity 22.3 pg/mL (<58.9)
--- NOTE | 2025-01-13 11:37 | RAD REPORT ---
EXAM:Thorax Wo Con CLINICAL INDICATION: Shortness of breath TECHNIQUE: CT chest performed.. Axial, sagittal and coronal reconstructions were obtained. One or mor e of the following dose reduction techniques were used: Automated exposure control, adjustment of the mA and/or kV according to the patient size, and/or iterative reconstruction. Unless otherwise specified, incidental findings do not require dedicated imaging follow-up. [id number]. COMPARISON: January 08, 2025 FINDINGS: Bilateral bronchiectasis with mild to moderate tree-in-bud opacities unchanged. 1.9 cm left lower lob e nodule containing lucencies without significant change. Calcified mediastinal calcified hilar lymph nodes. No pleural effusion. No pericardial effusion Moderate to marked compression deformity lower thoracic vertebral body unchanged. 2.1 cm partially calcified left thyroid nodule unchanged. Stable right adrenal nodule probably an adenoma. Small hiatal hernia. Fluid within the esophagus may indicate gastroesophageal reflux. IMPRESSION: Mild to moderate tree-in-bud opacities probably atypical infection. 1.9 cm left lower lobe nodule probably inflammatory/infectious. Follow-up CT chest in 3 months recomm ended. Bronchiectasis 2.1 cm left thyroid nodule. Nonemergent thyroid ultrasound recommended
--- NOTE | 2025-01-13 12:34 | EDPHYS ---
Physician Documentation [facility] Name: Renee Meraz Age: 80 yrs Sex: Female : 1945 Arrival Date: 01/13/2025 Time: 10:15 Bed 14 Private MD: ED Physician Ab Corona HPI: 01/13 14:00 This 80 yrs old Female presents to ER via EMS with complaints of Shortness Of Breath. rt 14:00 Patient had a recent admission for pneumonia, was discharged on Levaquin. The patient rt reportedly had low oxygen saturations yesterday and today. Patient denies any complaints at this time. Symptoms are moderate in severity, no other aggravating or alleviating factors.. Historical: - Allergies: 10:17 shrimp flavoring; jl7 - PMHx: 10:17 diabetes mellitus; Hypertensive disorder; kidney disease; Myocardial infarction; jl7 10:18 Gout; Hypercholesterolemia; jl7 - Immunization history:: Adult Immunizations up to date. - Infectious Disease History:: Denies. - Social history:: Smoking status: Patient denies any tobacco usage or history of. - Family history:: not pertinent. ROS: 14:00 Constitutional: Negative for fever, chills, and weight loss, Cardiovascular: Negative rt for chest pain, palpitations, and edema, Respiratory: Negative for shortness of breath, cough, wheezing, and pleuritic chest pain, Abdomen/GI: Negative for abdominal pain, nausea, vomiting, diarrhea, and constipation, MS/Extremity: Negative for injury and deformity, Skin: Negative for injury, rash, and discoloration, Neuro: Negative for headache, weakness, numbness, tingling, and seizure, Exam: 14:00 Constitutional: This is a well developed, well nourished patient who is awake, alert, rt and in no acute distress. Head/Face: Normocephalic, atraumatic. Chest/axilla: Normal chest wall appearance and motion. Nontender with no deformity. No lesions are appreciated. Cardiovascular: Regular rate and rhythm with a normal S1 and S2. No gallops, murmurs, or rubs. Normal PMI, no JVD. No pulse deficits. Respiratory: Lungs have equal breath sounds bilaterally, clear to auscultation and percussion. No rales, rhonchi or wheezes noted. No increased work of breathing, no retractions or nasal flaring. Abdomen/GI: Soft, non-tender, with normal bowel sounds. No distension or tympany. No guarding or rebound. No evidence of tenderness throughout. Skin: Warm, dry with normal turgor. Normal color with no rashes, no lesions, and no evidence of cellulitis. MS/ Extremity: Pulses equal, no cyanosis. Neurovascular intact. Full, normal range of motion. Neuro: Awake and alert, GCS 15, oriented to person, place, time, and situation. Cranial nerves II-XII grossly intact. Motor strength 5/5 in all extremities. Sensory grossly intact. Cerebellar exam normal. Normal gait. Vital Signs: 10:29 BP 133 / 72; Pulse 79; Resp 18; Pulse Ox 96% on 2 lpm NC; ld1 12:00 BP 148 / 71; Pulse 80; Resp 18; Pulse Ox 96% on R/A; ld1 MDM: 10:20 Medical Screening Exam initiated rt 14:00 Differential diagnosis: Pneumonia, hypoxia. Data reviewed: vital signs, nurses notes, rt lab test result(s), EKG, radiologic studies. Consideration of Admission/Observation Patient was admitted/placed on observation. Management of patient was discussed with the following: Political Director: Discussed with Dr. Carlton, recommends admission for initiation of oxygen therapy.. Independent interpretation of the following test(s) in the Emergency Department CT Scan: My interpretation is No pneumothorax and no interpretation of CT scan images. Care significantly affected by the following chronic conditions: Diabetes, Hypertension. Counseling: I had a detailed discussion with the patient and/or guardian regarding the historical points, exam findings, and any diagnostic results supporting the discharge/admit diagnosis, lab results, radiology results, the need for further work-up and treatment in the hospital. 01/13 10:28 Order name: Basic Metabolic Panel; Complete Time: 11: rt 01/13 10:28 Order name: CBC with Diff; Complete Time: : rt 01/13 10:28 Order name: NT PRO-BNP; Complete Time: 11: rt 01/13 10:28 Order name: Troponin HS; Complete Time: 11: rt 01/13 10:28 Order name: CT Chest Wo Con; Complete Time: 11:38 rt 01/13 10:28 Order name: Cardiac monitoring; Complete Time: 10:43 rt 01/13 10:28 Order name: EKG - Nurse/Tech; Complete Time: :43 rt 01/13 10:28 Order name: IV Saline Lock; Complete Time: : rt 01/13 10:28 Order name: Labs collected and sent; Complete Time: : rt 01/13 10:28 Order name: O2 Per Protocol; Complete Time: 10: rt 01/13 10:28 Order name: O2 Sat Monitoring; Complete Time: 10:29 rt Administered Medications: No medications were administered Disposition Summary: 01/13/25 12:33 Hospitalization Ordered Notes: Hospitalization Status: Observation rt Provider: Yovanny Bond rt Location: Telemetry/MedSurg (observation) rt Condition: Stable rt Problem: an ongoing problem rt Symptoms: have improved rt Bed/Room Type: Standard rt Room Assignment: 213(01/13/25 14:24) bd Diagnosis - Hypoxemia rt Forms: - Medication Reconciliation Form rt - SBAR form rt - Leadership Thank You Letter rt Signatures: Dispatcher [employer] EDMS Manasa Mckeon Jahala RN RN [id number] Ab Corona MD MD rt Corrections: (The following items were deleted from the chart) 10:29 10:29 BASIC METABOLIC PANEL+C.LAB.BRZ ordered. EDMS EDMS 10:29 10:29 CBC+H.LAB.BRZ ordered. EDMS EDMS 10:29 10:29 PROBNP+C.LAB.BRZ ordered. EDMS EDMS 10:29 10:29 Troponin High Sensitivity+C.LAB.BRZ ordered. EDMS EDMS 10:29 10:29 Thorax Wo Con+CT.RAD.BRZ ordered. EDMS EDMS 14:24 12:33 rt bd
--- NOTE | 2025-01-13 12:34 | ER ---
Nurse's Notes [facility] Name: Renee Meraz Age: 80 yrs Sex: Female : 1945 Arrival Date: 01/13/2025 Time: 10:15 Bed 14 Private MD: Diagnosis: Hypoxemia Presentation: 01/13 10:17 Chief complaint: EMS states: toned out for low 02. [facility] called EMS. Pt denies jl7 SOB and denies pain. Coronavirus screen: At this time, the client does not indicate any symptoms associated with coronavirus-19. Ebola Screen: No symptoms or risks identified at this time. Risk Assessment: Do you want to hurt yourself or someone else? Patient reports no desire to harm self or others. Onset of symptoms was January 13, 2025. 10:17 Method Of Arrival: EMS: [facility] jl7 10:17 Acuity: PAMELA 3 jl7 15:25 Initial Sepsis Screen: Does the patient meet any 2 criteria? No. Patient's initial ld1 sepsis screen is negative. Does the patient have a suspected source of infection? No. Patient's initial sepsis screen is negative. Triage Assessment: 10:17 General: Appears in no apparent distress. comfortable, Behavior is calm, cooperative, jl7 appropriate for age. Pain: Denies pain. EENT: No signs and/or symptoms were reported regarding the EENT system. Neuro: Level of Consciousness is awake, alert, obeys commands, Oriented to person, place, time, situation. Cardiovascular: Capillary refill Clubbing of nail beds. 10:18 Respiratory: Reports denies SOB Onset: The symptoms/episode began/occurred gradually, jl7 the patient has moderate shortness of breath. GI: Abdomen is round non-distended. : No signs and/or symptoms were reported regarding the genitourinary system. Derm: No signs and/or symptoms reported regarding the dermatologic system. Musculoskeletal: No signs and/or symptoms reported regarding the musculoskeletal system. Historical: - Allergies: 10:17 shrimp flavoring; jl7 - PMHx: 10:17 diabetes mellitus; Hypertensive disorder; kidney disease; Myocardial infarction; jl7 10:18 Gout; Hypercholesterolemia; jl7 - Immunization history:: Adult Immunizations up to date. - Infectious Disease History:: Denies. - Social history:: Smoking status: Patient denies any tobacco usage or history of. - Family history:: not pertinent. Screenin:20 [facility] ED Fall Risk Assessment (Adult) History of falling in the last 3 months, jl7 including since admission No falls in past 3 months (0 pts) Confusion or Disorientation No (0 pts) Intoxicated or Sedated No (0 pts) Impaired Gait No (0 pts) Mobility Assist Device Used No (0 pt) Altered Elimination No (0 pt) Score/Fall Risk Level 0 - 2 = Low Risk Oriented to surroundings, Hourly rounding (assess needs \T\ fall precautionary measures) done. Abuse screen: Denies threats or abuse. Denies injuries from another. Nutritional screening: No deficits noted. Tuberculosis screening: No symptoms or risk factors identified. Assessment: 10:20 Reassessment: See triage assessment. Cardiovascular: Capillary refill < 3 seconds jl7 Patient's skin is warm and dry. Rhythm is sinus rhythm. Respiratory: Airway is patent Respiratory effort is even, unlabored, Breath sounds are clear bilaterally. 12:00 Reassessment: Patient appears in no apparent distress at this time. No changes from ld1 previously documented assessment. Patient and/or family updated on plan of care and expected duration. Pain level reassessed. Patient is alert, oriented x 3, equal unlabored respirations, skin warm/dry/pink. Vital Signs: 10:29 BP 133 / 72; Pulse 79; Resp 18; Pulse Ox 96% on 2 lpm NC; ld1 12:00 BP 148 / 71; Pulse 80; Resp 18; Pulse Ox 96% on R/A; ld1 ED Course: 10:16 Patient arrived in ED. jl7 10:17 Ab Corona MD is Attending Physician. rt 10:17 Triage completed. jl7 10:18 Arm band placed on right wrist. jl7 10:20 Patient has correct armband on for positive identification. Bed in low position. Call jl7 light in reach. Side rails up X2. secured entrance monitor on. Pulse ox on. NIBP on. Door closed. Noise minimized. Warm blanket given. 10:20 No provider procedures requiring assistance completed. jl7 10:26 Jany Tinoco, [place] is Primary Nurse. ld1 10:43 Inserted saline lock: 20 gauge in right antecubital area, using aseptic technique. ld1 Blood collected. Flushed with 10 mL NS. 11:06 CT Chest Wo Con In Process Unspecified. EDMS 12:33 Yovanny Bond MD is Hospitalizing Provider. rt 15:24 Patient admitted, IV remains in place. ld1 Administered Medications: No medications were administered Medication: 10:20 VIS not applicable for this client. jl7 Outcome: 12:33 Decision to Hospitalize by Provider. rt 15:24 Admitted to Med/surg accompanied by tech, via stretcher, ld1 15:24 Condition: stable 15:24 Instructed on the need for admit, 15:25 Patient left the ED. ld1 Signatures: Dispatcher [employer] EDMS Yvette [place] RN RN jl7 Jany Tinoco RN RN ld1 Ab Corona MD MD rt
[2025-01-13] MEDS ORDERED: ALBUTEROL 2.5 MG/3 ML NEB SOL NEB PRN (15:29)
[2025-01-13] MEDS ORDERED: ONDANSETRON 4 MG/2 ML VIAL IV PRN (15:29)
--- NOTE | 2025-01-13 16:19 | P.HP ---
Certification for Inpatient Patient admitted to: Observation With expected LOS: <2 Midnights Patient will require the following post-hospital care: None Practitioner: I am a practitioner with admitting privileges, knowledge of patient current condition, hospital course, and medical plan of care. Services: Services provided to patient in accordance with Admission requirements found in Title 42 Section 412.3 of the Code of Federal Regulations Patient History Date of Service: 01/13/25 Reason for admission: Dyspnea, hypoxia History of Present Illness: Patient was recently admitted to our hospital from 01/08/2025 through 01/10/2025 for bronchiectasis, syncope. Sputum culture was performed during that admission and grew Pseudomonas which was sensitive to levofloxacin. She was discharged with a prescription for levofloxacin to take once every 48 hours for the next 2 weeks. She had been doing well outpatient but today had her oxygen saturation checked by his [employer] at [facility] in and it was reportedly in the 80s. She was sent to the ER for further evaluation. She was seen in the ER her labs were significant for a creatinine of 1.88 glucose of 348 sodium 134 white blood cell count 7.8 CT of the chest was performed which showed mild to moderate tree-in-bud opacities probably atypical infection. 1.9 cm left lower lobe nodule probably inflammatory/infectious, recommend follow-up CT in 3 months, bronchiectasis. 2.1 cm left thyroid nodule. Nonemergent thyroid ultrasound recommended. Patient's oxygen saturation remained in the low 90s throughout her ER stay, case was discussed with pulmonology recommends observation admission, evaluation for possible need for home O2. Allergies shellfish derived Adverse Reaction (Verified 08/09/14 13:43) Nausea/Vomiting Home Medications: Aspirin [Aspirin EC 325 MG] 1 mg PO DAILY 11/17/24 Bumetanide [Bumex*] 0.5 mg PO DAILY 11/17/24 Cholecalciferol (Vitamin D3) [Vitamin D 5,000 IU Cap*] 5,000 unit PO DAILY 11/17/24 Ferrous Sulfate 325 mg PO DAILY 11/17/24 Magnesium Oxide [Magnesium] 500 mg PO BID 11/17/24 Pravastatin [Pravachol*] 2 tab PO DAILY 11/17/24 Repaglinide [Prandin] 0.5 mg PO TID 11/17/24 Tumeric/Ging/[place]/Oreg/Capryl [Candicidal Capsule] 500 mg PO DAILY 11/17/24 Ubidecarenone/Vit E Acet [Co Q-10 100 mg Softgel] 100 mg PO DAILY 11/17/24 Vitamin K2 100 mcg PO DAILY 11/17/24 carvediloL [Carvedilol] 25 mg PO BID 11/17/24 Metformin ER [Glucophage ER*] 1,000 mg PO DAILY WITH BREAKFAST 30 Days #30 tab.sa 11/19/24 Mometasone/Formoterol [Dulera 200 Mcg/5 Mcg Inhaler] 2 puff IH BID 30 Days #1 inhaler 01/10/25 levoFLOXacin [Levaquin*] 750 mg PO Q48H 14 Days #6 tab 01/10/25 - Past Medical/Surgical History Diabetic: Yes -: Hypertension -: Diabetes mellitus -: CKD III -: [place] with stent -: Bronchiectasis -: Coronary artery stent placement Psychosocial/ Personal History: Patient is a resident of [facility] in assisted living - Social History Alcohol use: No CD- Drugs: No Caffeine use: Yes Place of Residence: Home Review of Systems 10-point ROS is otherwise unremarkable Respiratory: Cough, Shortness of Breath Physical Examination - Vital Signs Blood Pressure: 148/71 Pulse: 80 Respirations: 18 - Physical Exam General: Alert, In no apparent distress, Oriented x3 HEENT: Atraumatic, PERRLA, EOMI Neck: Supple, 2+ carotid pulse no bruit, No LAD Respiratory: Diminished Cardiovascular: Regular rate/rhythm, Normal S1 S2 Gastrointestinal: Normal bowel sounds, No tenderness Musculoskeletal: No tenderness Integumentary: No rashes Neurological: Normal speech, Normal strength at 5/5 x4 extr, Normal affect - Studies Laboratory Data (last 24 hrs) 01/13/25 01/13/25 10:35 10:35 WBC 7.80 Hgb 11.9 L Hct 36.7 Plt Count 231 Sodium 134 L Potassium 3.8 BUN 37 H Creatinine 1.88 H Glucose 348 H Assessment and Plan - Plan Assessment: Bronchiectasis, dyspnea, atypical pneumonia with hypoxia Diabetes mellitus type 3bof-wukngoj-aexrzrylx with hyperglycemia CKD Hypertension Plan: Bronchiectasis, dyspnea, atypical pneumonia with hypoxia Recent sputum culture reviewed-continue levofloxacin Pulmonology consulted Room air sats for home O2 with exertion Repeat blood work in the morning Diabetes mellitus type 0ntj-ujmibat-evwbomxhm with hyperglycemia ACHS Accu-Chek, sliding scale insulin CKD Gentle IV fluids overnight Nephrology consultation Elevated slightly over recent renal function but not far from baseline Hypertension Continue home medication when verified DVT PPX: Heparin subcu Code status: Full Discharge Plan: Home Plan to discharge in: 24 Hours - Advance Directives Does patient have a Living Will: No Does patient have a Durable POA for Healthcare: No - Code Status/Comfort Care Code Status Assessed: Yes (Full code) Critical Care: No Time Spent Managing Pts Care (In Minutes): 65
[2025-01-13] MEDS ORDERED: D10W 125 ML IV PRN (16:23)
[2025-01-13] MEDS ORDERED: GLUCAGON 1 MG/VIAL IM PRN (16:23)
[2025-01-13] MEDS: INSULIN REGULAR (HUMAN) 100 UNIT/ML SQ SCH (16:30)
[2025-01-13] MEDS: PNEUMOCOCCAL VACCINE 0.5 ML IMVAC ONE (17:00)
[2025-01-13 17:15] VITALS: BMI 29.2
[2025-01-13] MEDS: levoFLOXacin 750 MG TAB PO SCH (19:20)
[2025-01-13] MEDS: NA CHLORIDE 0.9% 1,000 ML IV SCH (19:21)
[2025-01-13] MEDS: HEPARIN 5000 UNIT/ML 1 ML VIAL SQ SCH (20:13)
[2025-01-14 05:28] LABS: Absolute Basophils 0.1 K/uL (0-0.5); Absolute Monocytes 1.3 K/uL (0.1-1.3); Absolute Neutrophil 5.9 K/uL (1.8-8.0); Basophils % 0.6 % (0-1.3); Eosinophils % 0.5 % (0-4.4); Hematocrit 33.7 % (36.0-45.0); Hemoglobin 11.4 g/dL (12.0-15.0); Lymphocytes % 21.3 % (15.3-44.8); MCH 30.5 pg (27.0-35.0); MCHC 33.7 g/dL (32.0-36.0); MCV 90.7 fL (80-100); MPV 7.9 fL (7.6-11.3); Monocytes % 14.3 % (3.3-12.3); Neutrophils % 63.3 % (41.7-73.7); Nucleated Red Blood Cells % 0.2 % (0-0); Platelets 206 thou/uL (152-406); RBC Red Blood Cell Count 3.72 M/uL (3.86-4.86); Red Cell Distribution Width 15.2 % (12.1-15.2)
[2025-01-14 05:53] LABS: Anion Gap 11.4 mEq/L (5.0-15.0); Potassium 3.4 mEq/L (3.5-5.1)
[2025-01-14 06:34] VITALS: BP 176/79; TEMP 97.5
[2025-01-14] MEDS: POTASSIUM 25 MEQ EFFERV TAB PO ONE (08:00)
--- NOTE | 2025-01-14 08:24 | P.PN ---
Subjective Date of Service: 01/14/25 Chief Complaint: Bronchiectasis Subjective: Improving (And is improving doing well I just saw her in my clinic son present at the bedside has any complaint) Review of Systems Respiratory: Cough, Shortness of Breath Physical Examination - Vital Signs Temperature: 97.5 F Blood Pressure: 176/79 Pulse: 89 Respirations: 17 Pulse Ox (%): 93 - Physical Exam General: Oriented x3 HEENT: Atraumatic Neck: Supple Respiratory: Clear to auscultation bilaterally - Studies Laboratory Data (last 24 hrs) 01/13/25 01/13/25 10:35 10:35 WBC 7.80 Hgb 11.9 L Hct 36.7 Plt Count 231 Sodium 134 L Potassium 3.8 BUN 37 H Creatinine 1.88 H Glucose 348 H Assessment And Plan - Current Problems (Diagnosis) (1) Bronchiectasis with (acute) exacerbation Current Visit: No Status: Acute Plan: Patient is 80 years of age admitted to the hospital for hypoxemia patient denies any complaints history of bronchiectasis responding well to levofloxacin renal insufficiency is proving significant change in her CT scan she has got a 1.9 cm left lower lobe pulmonary nodule is scheduled to have follow-up CT in a month patient still has extensive tree-in-bud changes I have ordered flutter valve on her patient to continue levofloxacin for a total duration of 14 months beginning her first admission scan reviewed again extensive tree-in-bud changes no s ignificant change patient's white count is normal
--- NOTE | 2025-01-14 10:21 | P.DS ---
Admission Date: 01/13/25 Discharge Date: 01/14/25 Disposition: ROUTINE DISCHARGE Discharge Condition: GOOD Reason for Admission: Bronchiectasis Brief History of Present Illness: Patient was recently admitted to our hospital from 01/08/2025 through 01/10/2025 for bronchiectasis, syncope. Sputum culture was performed during that admission and grew Pseudomonas which was sensitive to levofloxacin. She was discharged with a prescription for levofloxacin to take once every 48 hours for the next 2 weeks. She had been doing well outpatient but today had her oxygen saturation checked by his [employer] at [facility] in and it was reportedly in the 80s. She was sent to the ER for further evaluation. She was seen in the ER her labs were significant for a creatinine of 1.88 glucose of 348 sodium 134 white blood cell count 7.8 CT of the chest was performed which showed mild to moderate tree-in-bud opacities probably atypical infection. 1.9 cm left lower lobe nodule probably inflammatory/infectious, recommend follow-up CT in 3 months, bronchiectasis. 2.1 cm left thyroid nodule. Nonemergent thyroid ultrasound recommended. Patient's oxygen saturation remained in the low 90s throughout her ER stay, case was discussed with pulmonology recommends observation admission, evaluation for possible need for home O2. Hospital Course: Assessment: Bronchiectasis, dyspnea, atypical pneumonia with hypoxia Diabetes mellitus type 2her-ioiuljv-nsmedkunm with hyperglycemia CKD Hypertension Patient with recent hospitalization for bronchiectasis with sputum culture showing Pseudomonas sensitive to levofloxacin presented to the emergency department chief complaint of dyspnea, hypoxia. Patient and family reports that her oxygen saturation was checked at the assisted living facility where she is staying and was in the mid 80s. She was brought into hospital to assess the need for oxygen or worsening in her condition. She was afebrile, white blood cell count was within normal limits, she denied any specific complaints. room air saturation at rest in the 90s, myself, the nurse and respiratory therapist ambulated the patient approximately 250 feet without oxygen and throughout the exercise and after the exercise her room air saturation was 93% to 94%. She does not meet the criteria for home oxygen at this time, she felt some mild exhaustion/shortness of breath with the exercise but quickly recovered. She was seen by pulmonology who recommended the addition of a flutter valve, she was given this and the instructions for its use. She should continue her home medications including levofloxacin that she was previously prescribed and follow-up with her primary care doctor and pulmonology outpatient. Family also mention concerns of an essential tremor which have been developing over some time now, discussed appropriate follow-up outpatient with neurology, information for local neurologist Dr. Manley to be provided. Vital Signs/Physical Exam: Temp Pulse Resp BP Pulse Ox 97.5 F 89 17 176/79 H 93 01/14/25 08:24 01/14/25 08:24 01/14/25 08:24 01/14/25 08:24 01/14/25 08:24 General: Alert, In no apparent distress, Oriented x3 HEENT: Atraumatic, PERRLA, EOMI Neck: Supple, JVD not distended Respiratory: Clear to auscultation bilaterally, Normal air movement Cardiovascular: Regular rate/rhythm, Normal S1 S2 Gastrointestinal: Normal bowel sounds, No tenderness Musculoskeletal: No tenderness Integumentary: No rashes Neurological: Normal speech, Normal affect Laboratory Data at Discharge: WBC 9.40 thou/uL (4.3-10.9) 01/14/25 04:53 Hgb 11.4 g/dL (12.0-15.0) L 01/14/25 04:53 Hct 33.7 % (36.0-45.0) L 01/14/25 04:53 Plt Count 206 thou/uL (152-406) 01/14/25 04:53 Sodium 135 mEq/L (136-145) L 01/14/25 04:53 Potassium Cancelled 01/14/25 14:00 BUN 34 mg/dL (7-18) H 01/14/25 04:53 Creatinine 1.66 mg/dL (0.55-1.02) H 01/14/25 04:53 Glucose 137 mg/dL (74-106) H 01/14/25 04:53 Home Medications: Aspirin [Aspirin EC 325 MG] 1 mg PO DAILY 11/17/24 Bumetanide [Bumex*] 0.5 mg PO DAILY 11/17/24 Cholecalciferol (Vitamin D3) [Vitamin D 5,000 IU Cap*] 5,000 unit PO DAILY 11/17/24 Ferrous Sulfate 325 mg PO DAILY 11/17/24 Magnesium Oxide [Magnesium] 500 mg PO BID 11/17/24 Pravastatin [Pravachol*] 2 tab PO DAILY 11/17/24 Repaglinide [Prandin] 0.5 mg PO TID 11/17/24 Tumeric/Ging/[place]/Oreg/Capryl [Candicidal Capsule] 500 mg PO DAILY 11/17/24 Ubidecarenone/Vit E Acet [Co Q-10 100 mg Softgel] 100 mg PO DAILY 11/17/24 Vitamin K2 100 mcg PO DAILY 11/17/24 carvediloL [Carvedilol] 25 mg PO BID 11/17/24 Metformin ER [Glucophage ER*] 1,000 mg PO DAILY WITH BREAKFAST 30 Days #30 tab.sa 11/19/24 Mometasone/Formoterol [Dulera 200 Mcg/5 Mcg Inhaler] 2 puff IH BID 30 Days #1 inhaler 01/10/25 levoFLOXacin [Levaquin*] 750 mg PO Q48H 14 Days #6 tab 01/10/25 Physician Discharge Instructions: Patient with recent hospitalization for bronchiectasis with sputum culture showing Pseudomonas sensitive to levofloxacin presented to the emergency department chief complaint of dyspnea, hypoxia. Patient and family reports that her oxygen saturation was checked at the assisted living facility where she is staying and was in the mid 80s. She was brought into hospital to assess the need for oxygen or worsening in her condition. She was afebrile, white blood cell count was within normal limits, she denied any specific complaints. room air saturation at rest in the 90s, myself, the nurse and respiratory therapist ambulated the patient approximately 250 feet without oxygen and throughout the exercise and after the exercise her room air saturation was 93% to 94%. She does not meet the criteria for home oxygen at this time, she felt some mild exhaustion/shortness of breath with the exercise but quickly recovered. She was seen by pulmonology who recommended the addition of a flutter valve, she was given this and the instructions for its use. She should continue her home medications including levofloxacin that she was previously prescribed and follow-up with her primary care doctor and pulmonology outpatient. Family also mention concerns of an essential tremor which have been developing over some time now, discussed appropriate follow-up outpatient with neurology, information for local neurologist Dr. Manley to be provided. Diet: Regular Activity: Fall precautions Followup: Sarwat Carlton MD [ACTIVE - CAN ADMIT] - 1 Week Ze Fuller DO [Primary Care Provider] - 1-2 Weeks Branden Manley MD [ASSOCIATE-ACTIVE - CAN ADMIT] - 1-2 Weeks Time spent managing pt's care (in minutes): 45
[2025-01-14 11:04] VITALS: O2SAT 92
== END 2025-01-14 10:02 | disposition home or self-care (01) ==
LOC: ER 10:15 → ERHOLD 13:19 → 2ND 14:38
PROVIDERS: ADMIT Hospitalist; ATTEND Hospitalist
DX: J47.1 Bronchiectasis with (acute) exacerbation (principal); J18.9 Pneumonia, unspecified organism; R09.02 Hypoxemia; E11.65 Type 2 diabetes mellitus with hyperglycemia; N18.9 Chronic kidney disease, unspecified; I10 Essential (primary) hypertension
CPT/HCPCS: 93005; 85025 ×2; 80048 ×2; 36415; 82947 ×2; 84484; 83880; 71250; 99285; 94668; J1644; J7030 ×2; G0378